=== PATIENT | female | born 1990 | race Hispanic/Latino ===

== ENCOUNTER 2019-07-15 11:58 | Emergency (ER) | payer BC, SELFPAY ==
[2019-07-15 12:59] LABS: Urine Blood 2+ (NEG); Urine Glucose NEGATIVE (NEG); Urine Protein NEGATIVE (NEG); Urine Specific Gravity >1.030 (1.005-1.030)
[2019-07-15] MEDS ORDERED: NA CHLORIDE 0.9% 1,000 ML ONE (13:06)
[2019-07-15 13:12] LABS: Basophils % 0.6 % (0-1.3); Hematocrit 39.6 % (36.0-45.0); Lymphocytes % 31.6 % (15.3-44.8); RBC Red Blood Cell Count 4.45 M/uL (3.86-4.86)
[2019-07-15 13:34] LABS: BUN Blood Urea Nitrogen 9 mg/dL (7-18); Bicarbonate 23 mmol/L (21-32); Glucose Level 85 mg/dL (74-106); HCG, Quantitative 19620 mIU/mL (1-3); Potassium 3.6 mmol/L (3.5-5.1); Sodium Level 138 mmol/L (136-145)
[2019-07-15 13:41] LABS: Urine Bacteria 20-50 /HPF (<20); Urine RBC <5 /HPF (NONE SEEN)
[2019-07-15 13:42] LABS: Urine Culture Reflex Order NOT NEEDED
--- NOTE | 2019-07-15 13:43 | ER ---
Nurse's Notes [facility] Name: Ghazal Fong Age: 29 yrs Sex: Female : 1990 Arrival Date: 07/15/2019 Time: 12:01 Bed 8 Private MD: Diagnosis: related conditions, unspecified, first trimester-vaginal bleeding Presentation: 07/15 12:19 Presenting complaint: Patient states: "I am 6 weeks and I started bleeding aa5 this morning". Pt c/o lower abd cramping and vaginal bleeding that is described as small amount. Transition of care: patient was not received from another setting of care. Onset of symptoms was July 15, 2019. Risk Assessment: Do you want to hurt yourself or someone else? Patient reports no desire to harm self or others. Initial Sepsis Screen: Does the patient meet any 2 criteria? No. Patient's initial sepsis screen is negative. Does the patient have a suspected source of infection? No. Patient's initial sepsis screen is negative. Care prior to arrival: None. 12:19 Acuity: JOEL 3 aa5 12:19 Method Of Arrival: Ambulatory aa5 ORDER MAKE UP CLERK: 12:20 4, Full Term 0, Premature 1, 2, Living 1, LMP 05/30/2019 aa5 13:40 4, Living 1, LMP 05/30/2019 snw Historical: - Allergies: 12:20 No Known Allergies; aa5 - Home Meds: 12:20 None [Active]; aa5 - PMHx: 12:20 None; aa5 - PSHx: 12:20 ; aa5 - Immunization history:: Adult Immunizations up to date. - Social history:: Smoking status: Patient/guardian denies using tobacco. - Ebola Screening: : No symptoms or risks identified at this time. Screenin:37 Abuse screen: Denies threats or abuse. Nutritional screening: No deficits noted. tw2 Tuberculosis screening: No symptoms or risk factors identified. Fall Risk None identified. Assessment: 12:47 General: Appears in no apparent distress. Behavior is calm, cooperative, appropriate tw2 for age. Pain: Denies pain. Neuro: Level of Consciousness is awake, alert, obeys commands, Oriented to person, place, time, situation. Cardiovascular: Heart tones S1 S2 Patient's skin is warm and dry. Respiratory: Airway is patent Respiratory effort is even, unlabored, Respiratory pattern is regular, symmetrical, Breath sounds are clear bilaterally. GI: No signs and/or symptoms were reported involving the gastrointestinal system. : Reports vaginal bleeding that is bright red, light flow. EENT: No signs and/or symptoms were reported regarding the EENT system. Derm: No signs and/or symptoms reported regarding the dermatologic system. Musculoskeletal: Range of motion: intact in all extremities. 13:37 Reassessment: Patient appears in no apparent distress at this time. No changes from tw2 previously documented assessment. Patient and/or family updated on plan of care and expected duration. Pain level reassessed. Patient is alert, oriented x 3, equal unlabored respirations, skin warm/dry/pink. Vital Signs: 12:20 BP 117 / 80; Pulse 87; Resp 18 S; Temp 97.6(TE); Pulse Ox 99% on R/A; Weight 87.54 kg aa5 (R); Height 5 ft. 4 in. (162.56 cm) (R); Pain 4/10; 13:37 BP 109 / 72; Pulse 77; Resp 17; Pulse Ox 98% on R/A; tw2 12:20 Body Mass Index 33.13 (87.54 kg, 162.56 cm) aa5 Vitals: 12:35 Heart Tones n/a. tw2 ED Course: 12:01 Patient arrived in ED. am2 12:19 Arm band placed on. aa5 12:20 Winnie Damian F[facility]-C [facility] snw 12:20 Jeison Salcido MD is Attending Physician. snw 12:20 Triage completed. aa5 12:34 Elizabeth Doyle, RONALD is Primary Nurse. tw2 12:37 Bed in low position. Call light in reach. tw2 12:46 Initial lab(s) drawn, by me, sent to lab. Urine collected: clean catch specimen, clear, jb1 jin colored. Inserted saline lock: 22 gauge in right antecubital area, using aseptic technique. Blood collected. 13:27 Patient taken to ultrasound. via wheelchair. lc3 13:27 Ultrasound completed. Patient tolerated well. Patient moved back from radiology. lc3 13:31 US Transvaginal Ob In Process Unspecified. EDMS 14:00 No provider procedures requiring assistance completed. IV discontinued, intact, tw2 bleeding controlled, No redness/swelling at site. Pressure dressing applied. Administered Medications: 13:26 Drug: NS 0.9% 1000 ml Route: IV; Rate: 1 bolus; Site: right antecubital; tw2 14:00 Follow up: IV Status: Order to discontinue infusion tw2 Outcome: 13:42 Discharge ordered by MD. blackburn 14:00 Discharged to home ambulatory. tw2 14:00 Condition: stable 14:00 Discharge instructions given to patient, Instructed on discharge instructions, follow up and referral plans. medication usage, Demonstrated understanding of instructions, follow-up care, medications, Prescriptions given X 1. 14:01 Patient left the ED. tw2 Signatures: Dispatcher [employer] EDMS Shaka Jones jb1 Winnie Damian, SALES SERVICE ROUTE MANAGER-C SALES SERVICE ROUTE MANAGER-[place] Nemo Tao, RN RN aa5 Bi Torres Tara, RN RN tw2 Katie Monteiro am2 Corrections: (The following items were deleted from the chart) 12:22 12:20 Pulse 87bpm; Resp 18bpm; Spontaneous; Pulse Ox 99% RA; Temp 97.6F Temporal; 87.54 aa5 kg Reported; Height 5 ft. 4 in. Reported; BMI: 33.1; Pain 4/10; aa5
--- NOTE | 2019-07-15 13:44 | EDPHYS ---
Physician Documentation [facility] Name: Ghazal Fong Age: 29 yrs Sex: Female : 1990 Arrival Date: 07/15/2019 Time: 12:01 Bed 8 Private MD: HÉCTOR Physician Jeison Salcido HPI: 07/15 13:40 This 29 yrs old Female presents to ER via Ambulatory with complaints of snw Vaginal Bleeding, + Preg <12wks. 13:40 The patient presents with vaginal bleeding that is light, with no clots. Onset: The snw symptoms/episode began/occurred suddenly. Modifying factors: The symptoms are alleviated by nothing, the symptoms are aggravated by nothing. Associated signs and symptoms: Pertinent positives: cramping. Severity of symptoms: At their worst the symptoms were very mild. The patient is sexually active. It is unknown whether or not the patient has had similar symptoms in the past. The patient has not recently seen a physician. MEDICAL ORDERLY: 12:20 4, Full Term 0, Premature 1, 2, Living 1, LMP 05/30/2019 aa5 13:40 4, Living 1, LMP 05/30/2019 snw Historical: - Allergies: 12:20 No Known Allergies; aa5 - Home Meds: 12:20 None [Active]; aa5 - PMHx: 12:20 None; aa5 - PSHx: 12:20 ; aa5 - Immunization history:: Adult Immunizations up to date. - Social history:: Smoking status: Patient/guardian denies using tobacco. - Ebola Screening: : No symptoms or risks identified at this time. ROS: 13:38 Constitutional: Negative for fever, chills, and weight loss, Eyes: Negative for injury, snw pain, redness, and discharge, ENT: Negative for injury, pain, and discharge, Neck: Negative for injury, pain, and swelling, Cardiovascular: Negative for chest pain, palpitations, and edema, Respiratory: Negative for shortness of breath, cough, wheezing, and pleuritic chest pain, Abdomen/GI: Negative for abdominal pain, + cramping, nausea, vomiting, diarrhea, and constipation, Back: Negative for injury and pain. 13:38 MS/Extremity: Negative for injury and deformity, Skin: Negative for injury, rash, and discoloration, Neuro: Negative for headache, weakness, numbness, tingling, and seizure, Psych: Negative for depression, anxiety, suicide ideation, homicidal ideation, and hallucinations. 13:38 : Positive for vaginal bleeding, small amounts. Exam: 13:36 Constitutional: This is a well developed, well nourished patient who is awake, alert, snw and in no acute distress. Head/Face: Normocephalic, atraumatic. Eyes: Pupils equal round and reactive to light, extra-ocular motions intact. Lids and lashes normal. Conjunctiva and sclera are non-icteric and not injected. Cornea within normal limits. Periorbital areas with no swelling, redness, or edema. ENT: Nares patent. No nasal discharge, no septal abnormalities noted. Tympanic membranes are normal and external auditory canals are clear. Oropharynx with no redness, swelling, or masses, exudates, or evidence of obstruction, uvula midline. Mucous membranes moist. Neck: Trachea midline, no thyromegaly or masses palpated, and no cervical lymphadenopathy. Supple, full range of motion without nuchal rigidity, or vertebral point tenderness. No Meningismus. Chest/axilla: Normal chest wall appearance and motion. Nontender with no deformity. No lesions are appreciated. Cardiovascular: Regular rate and rhythm with a normal S1 and S2. No gallops, murmurs, or rubs. Normal PMI, no JVD. No pulse deficits. Respiratory: Lungs have equal breath sounds bilaterally, clear to auscultation and percussion. No rales, rhonchi or wheezes noted. No increased work of breathing, no retractions or nasal flaring. Abdomen/GI: Soft, non-tender, with normal bowel sounds. No distension or tympany. No guarding or rebound. No evidence of tenderness throughout. Back: No spinal tenderness. No costovertebral tenderness. Full range of motion. MS/ Extremity: Pulses equal, no cyanosis. Neurovascular intact. Full, normal range of motion. Neuro: Awake and alert, GCS 15, oriented to person, place, time, and situation. Cranial nerves II-XII grossly intact. Motor strength 5/5 in all extremities. Sensory grossly intact. Cerebellar exam normal. Normal gait. Psych: Awake, alert, with orientation to person, place and time. Behavior, mood, and affect are within normal limits. 13:36 Skin: Appearance: normal except for affected area, ecchymosis, noted on the, right quadriceps, that are moderate, pt states her dog bit her a few days ago - no fever, no s/s of infection. Vital Signs: 12:20 BP 117 / 80; Pulse 87; Resp 18 S; Temp 97.6(TE); Pulse Ox 99% on R/A; Weight 87.54 kg aa5 (R); Height 5 ft. 4 in. (162.56 cm) (R); Pain 4/10; 13:37 BP 109 / 72; Pulse 77; Resp 17; Pulse Ox 98% on R/A; tw2 12:20 Body Mass Index 33.13 (87.54 kg, 162.56 cm) aa5 MDM: 12:35 Patient medically screened. luis a 13:44 Data reviewed: vital signs, nurses notes. Data interpreted: Pulse oximetry: on room air snw is 98 %. Interpretation: normal. Counseling: I had a detailed discussion with the patient and/or guardian regarding: the historical points, exam findings, and any diagnostic results supporting the discharge/admit diagnosis, lab results, radiology results, the need for outpatient follow up, to return to the emergency department if symptoms worsen or persist or if there are any questions or concerns that arise at home. Special discussion: Based on the history and exam findings, there is no indication for further emergent testing or inpatient evaluation. I discussed with the patient/guardian the need to see the OB Gyne specialist for further evaluation of the symptoms. I discussed with the patient/guardian the need to see the primary care provider for further evaluation of the symptoms. 07/15 12:35 Order name: Urine Dipstick--Ancillary (enter results); Complete Time: 13:04 bd 07/15 12:35 Order name: Urine --Ancillary (enter results); Complete Time: 13:04 bd 07/15 12:38 Order name: Quantitative Hcg; Complete Time: 13:36 snw 07/15 12:38 Order name: Abo/rh Typing; Complete Time: 13:19 snw 07/15 12:38 Order name: Basic Metabolic Panel; Complete Time: 13:36 snw 07/15 12:38 Order name: CBC with Diff; Complete Time: 13:17 snw 07/15 12:38 Order name: IV Saline Lock; Complete Time: 12:44 snw 07/15 12:38 Order name: Labs collected and sent; Complete Time: 12:44 snw 07/15 12:38 Order name: NPO; Complete Time: 12:44 snw 07/15 12:38 Order name: US Transvaginal Ob; Complete Time: 13:52 snw 07/15 12:38 Order name: Urine Microscopic Only; Complete Time: 13:44 snw Administered Medications: 13:26 Drug: NS 0.9% 1000 ml Route: IV; Rate: 1 bolus; Site: right antecubital; tw2 14:00 Follow up: IV Status: Order to discontinue infusion tw2 Disposition: 07/16 07:38 Co-signature as Attending Physician, Jeison Salcido MD I agree with the assessment and luis a plan of care. Disposition: 07/15/19 13:42 Discharged to Home. Impression: related conditions, unspecified, first trimester - vaginal bleeding. - Condition is Stable. - Discharge Instructions: Abdominal Pain During , First Trimester of , Eating Plan for Women, Vaginal Bleeding During , First Trimester, [id number], What Do I Need to Know About Injuries During ?. - Prescriptions for Vitamin 27- 0.8 mg Oral Tablet - take 1 tablet by ORAL route once daily; 60 tablet. - Medication Reconciliation Form, Thank You Letter, Antibiotic Education, Prescription Opioid Use, Work release form form. - Follow up: Emergency Department; When: As needed; Reason: Worsening of condition. Follow up: Private Physician; When: 2 - 3 days; Reason: Recheck today's complaints, Continuance of care, Re-evaluation by your physician. Signatures: Dispatcher [employer] Jeison Montgomery MD MD cha Therrien, Shelly, PRODUCTION BROACHER-C PRODUCTION BROACHER-[employer] Nemo Tao, RN RN aa5 Elizabeth Doyle, RN RN tw2 Corrections: (The following items were deleted from the chart) 07/15 14:01 13:42 07/15/2019 13:42 Discharged to Home. Impression: related conditions, tw2 unspecified, first trimester - vaginal bleeding. Condition is Stable. Forms are Work release form, Medication Reconciliation Form, Thank You Letter, Antibiotic Education, Prescription Opioid Use. Follow up: Emergency Department; When: As needed; Reason: Worsening of condition. Follow up: Private Physician; When: 2 - 3 days; Reason: Recheck today's complaints, Continuance of care, Re-evaluation by your physician. bere
--- NOTE | 2019-07-15 13:44 | RAD REPORT ---
EXAM DESCRIPTION: US - Transvaginal OB - 07/15/2019 1:31 pm CLINICAL HISTORY: VAGINAL BLEEDING COMPARISON: No comparisons FINDINGS: A single gestational sac is seen within the uterus. The shape of the sac is within normal limits for gestational age. Within the sac is a single pole estimated gestational age of 6 week s 2 days. Estimated date of delivery is 03/07/2020. Heart rate is 125 BPM, normal. The placenta is not yet developed due to early gestational age. The maternal adnexa and ovaries are within normal limits. Normal Doppler blood flow was demonstrated to both ovaries. IMPRESSION: Single live early intrauterine gestation with estimated gestational age of 6 weeks 2 day s, YOSELYN 03/07/2020.
[2019-07-15 14:39] VITALS: BP 109/72; O2SAT 98
[2019-07-15 14:41] VITALS: TEMP 97.6
== END 2019-07-15 14:01 | disposition home or self-care (01) ==
LOC: ER 11:58
DX: O20.9 Hemorrhage in early pregnancy, unspecified (principal); Z3A.01 Less than 8 weeks gestation of pregnancy
CPT/HCPCS: 36415; 76817; 80048; 81003; 81015; 81025; 84702; 85025; 86900; 86901; 96360; 99284; J7030

== ENCOUNTER 2019-12-18 15:09 | Emergency (ER) | payer OTHER ==
--- OUTSIDE RECORDS SUMMARY | 2019-12-18 15:18 | XMS REPORT | Summary of Care ---
:1990 Author Organization [facility] Address [address] [place] [address] Care Team Providers Name Role Phone Michelle Granda [facility] Primary Care Provider Reason for Visit Reason Comments Care Encounter Details Date Type Department Care Team Description [facility]09[facility] Supervision of high risk , antepartum (Primary Dx); Visit Paulette R, BLUEPRINT CLERK Previous delivery affecting , antepartum; [address] vaginal after trial; [place], [place] [address] [place] [address] [address] [place], [place] [phone] Allergies Active Allergy Reactions Severity Noted Date Comments No Known Drug Allergies Unknown - See comments 05/18/2009 documented as of this encounter (statuses as of 11/09/2019) Medications Medication Sig Dispensed Refills Start Date End Date Status PNV 67-iron ps-folate Take 1 Each by 30 capsule 9 07/10/2019 Active no.1-dha (VITAFOL mouth daily. ULTRA) 29 mg iron- 1 mg-200 mg CapIndications: Supervision of high risk in first trimester proMETHazine 25 mg Take 1 tablet by 30 tablet 0 07/31/2019 Active tabletIndications: mouth every 4 Nausea and vomiting (four) hours as during needed for Nausea and Vomiting (N/V). foLIC acid 1 mg Take 1 tablet by 30 tablet 5 08/13/2019 Active tabletIndications: mouth daily. Supervision of high risk , antepartum, History of seizures ASPIRIN 81 mg EC TAKE 1 TABLET BY 90 tablet 3 11/05/2019 Active tabletIndications: MOUTH EVERY DAY History of pre-eclampsia documented as of this encounter (statuses as of 11/09/2019) Active Problems Problem Noted Date Desires vaginal after trial 10/12/2019 Previous delivery affecting , antepartum 08/13/2019 Supervision of high risk , antepartum 07/09/2019 Multiparity 07/09/2019 History of pre-eclampsia 07/09/2019 Obesity in 07/09/2019 Epilepsy, generalized, convulsive 05/18/2009 Overview: Last seizure was 03/2010 Estimated Date of Delivery Comments Yes 03/06/2020 Based on last menstrual period of 05/31/2019 documented as of this encounter (statuses as of 11/09/2019) Resolved Problems Problem Noted Date Resolved Date History of pre-eclampsia in prior , currently 08/13/2019 08/21/2019 History of seizures 08/13/2019 08/21/2019 Nausea and vomiting during 07/31/2019 08/21/2019 UTI in 07/31/2019 08/21/2019 Overview: Reports dx at her last hospital encounter upt neg BV (bacterial vaginosis) 07/10/2019 08/21/2019 History of section 07/09/2019 08/21/2019 Flu vaccine need 07/09/2019 08/21/2019 Overview: Received today Well woman exam 01/20/2019 07/09/2019 Obesity (BMI 30-39.9) 03/14/2017 07/09/2019 Former tobacco use 03/14/2017 08/21/2019 Overview: Quit 07/03/19 with Nexplanon removal 02/28/2016 03/14/2017 Contraceptive management 02/15/2016 08/21/2019 Dysmenorrhea 02/15/2016 07/09/[address] 06/25/2013 03/14/2017 Rubella immune 06/17/2013 02/15/2016 Tobacco use disorder 06/17/2013 03/14/2017 delivery delivered 09/10/2009 06/17/2013 Overview: ICD10 Diagnosis Term Solar Electric Installer Utility Antepartum hypertension 09/05/2009 06/17/2013 Overview: ICD10 Diagnosis Term Solar Electric Installer Utility documented as of this encounter (statuses as of 11/09/2019) Immunizations Name Administration Dates Next Due HPV9 03/14/2017, 05/29/2016, 02/14/2016 Influenza Virus Vaccine Quad .5 mL IM 6+ 07/09/2019 MO Rubella 04/11/2009 Td 10/07/2005 Tdap 03/14/2017 documented as of this encounter Social History Tobacco Use Types Packs/Day Years Used Date Former Smoker Cigarettes 0.05 0.5 07/09/2012 - 07/03/2019 Smokeless Tobacco: Never Used Comments: Socially only Alcohol Use Drinks/Week oz/Week Comments Not Currently Stopped drinking on 07/03/2019 Estimated Date of Delivery Comments Yes 03/06/2020 Based on last menstrual period of 05/31/2019 Sex Assigned at Date Recorded Not on file Job Start Date Occupation Industry Not on file Not on file Not on file Travel History Travel Start Travel End No recent travel history available. documented as of this encounter Last Filed Vital Signs Vital Sign Reading Time Taken Comments Blood Pressure 122/84 11/09/2019 9:51 AM CLINICAL NUTRITION MANAGER Pulse 108 11/09/2019 9:51 AM CLINICAL NUTRITION MANAGER Temperature 36.5 C (97.7 F) 11/09/2019 9:51 AM CLINICAL NUTRITION MANAGER Respiratory Rate 16 11/09/2019 9:51 AM CLINICAL NUTRITION MANAGER Oxygen Saturation - - Inhaled Oxygen Concentration - - Weight 98.1 kg (216 lb 5 oz) 11/09/2019 9:51 AM CLINICAL NUTRITION MANAGER Height 162.6 cm (5' 4") 11/09/2019 9:51 AM CLINICAL NUTRITION MANAGER Body Mass Index 37.13 11/09/2019 9:51 AM CLINICAL NUTRITION MANAGER documented in this encounter Progress Notes Suraj Mcgee, SHELDON - 11/09/2019 9:30 AM CST Chief complaint: Chief Complaint Patient presents with Care HPI CC: Follow Up Visit Ghazal Fong is a 29 year old, , /White female. Patient's last menstrual period was 05/31/2019. She is 23w1d with an intrauterine . Her estimated date of delivery is 03/06/2020, by Last Menstrual Period. She has no complaints today. She reports +FM and denies contractions, LOF and bleeding today. Patient denies current or past physical, sexual or emotional abuse. Histories OB History Para Term AB Living 4 1 0 1 0 1 SAB TAB Ectopic Multiple Live Births 0 0 0 0 1 # Outcome Date GA Lbr Gray/2nd Weight Sex Delivery Anes PTL Lv 4 Current 3 12/2018 2 06/2018 1 09/09/09 36w0d 5 lb 3 oz (2.353 kg) SEC BANDAR Comments: Severe preclampsia, epilepsy during Past Medical History: Diagnosis Date Anemia Resolved 2009 Antepartum hypertension 09/05/2009 BV (bacterial vaginosis) 07/10/2019 Dysmenorrhea 02/15/2016 Seizures 2000 no seizure in last 10 years, last seizure in 2008 STD (sexually transmitted disease) CT - Treated 2009 Tobacco use disorder 06/17/2013 Family History Problem Relation Age of Onset Other - see comments Sister No Significant Medical Problems Maternal Grandmother No Significant Medical Problems Paternal Grandmother Arthritis NoFHx Asthma NoFHx Genetic NoFHx defects NoFHx Breast Cancer NoFHx Colon Cancer NoFHx Ovarian Cancer NoFHx Uterine Cancer NoFHx Cancer NoFHx Depression NoFHx Diabetes NoFHx Heart NoFHx High cholesterol NoFHx Hypertension NoFHx Mental retardation NoFHx Neurological NoFHx Osteoporosis NoFHx Psychiatry NoFHx Family Status Relation Name Status Sis (Not Specified) Mo Alive Fa Alive MGMo Alive MGFa PGMo Alive PGFa NoFHx (Not Specified) Past Surgical History: Procedure Laterality Date SECTION 2008 Social History Socioeconomic History Marital status: Single Spouse name: Not on file Number of children: 1 Years of education: 12 Highest education level: Not on file Occupational History 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: [employer] Social Needs Financial resource strain: Not on file Food insecurity: Worry: Not on file Inability: Not on file Transportation needs: Medical: Not on file Non-medical: Not on file Tobacco Use Smoking status: Former Smoker Packs/day: 0.05 Years: 0.50 Pack years: 0.02 Types: Cigarettes Start date: 07/09/2012 Last attempt to quit: 07/03/2019 Years since quittin.3 Smokeless tobacco: Never Used Tobacco comment: Socially only Substance and Sexual Activity Alcohol use: Not Currently Comment: Stopped drinking on 07/03/2019 Drug use: No Sexual activity: Yes Partners: Male control/protection: None Lifestyle Physical activity: Days per week: Not on file Minutes per session: Not on file Stress: Not on file Relationships Social connections: Talks on phone: Not on file Gets together: Not on file Attends sabianism service: Not on file Active member of club or organization: Not on file Attends meetings of clubs or organizations: Not on file Relationship status: Not on file Intimate partner violence: Fear of current or ex partner: Not on file Emotionally abused: Not on file Physically abused: Not on file Forced sexual activity: Not on file Other Topics Concern Service Not Asked Blood Transfusions No Caffeine Concern Not Asked Occupational Exposure Not Asked Hobby Hazards Not Asked Sleep Concern Not Asked Stress Concern Not Asked Weight Concern Not Asked Special Diet Not Asked Back Care Not Asked Exercise Not Asked Bike Helmet Not Asked Seat Belt Not Asked Self-Exams Not Asked Social History Narrative Denies domestic violence or abuse. Patient lives with sister. Patient has 2 dogs. Social History Substance and Sexual Activity Sexual Activity Yes Partners: Male control/protection: None Labs Labs are pending. Radiology No new radiology. Allergies Ghazal is allergic to no known drug allergies. Medications Ghazal has a current medication list which includes the following prescription(s) : aspirin, folic acid, promethazine, and pnv 67-iron ps-folate no.1-dha. Review of Systems Eyes: Negative for visual disturbance. Cardiovascular: Negative for leg swelling. Gastrointestinal: Negative for abdominal pain, nausea and vomiting. Genitourinary: Negative for vaginal bleeding, vaginal discharge and pelvic pain. Neurological: Negative for headaches. BP 122/84 (BP Location: Right arm, Patient Position: Sitting, BP CUFF SIZE: Adult Medium) | Pulse 108 | Temp 36.5 C (97.7 F) (Oral) | Resp 16 | Ht 5 ' 4" (1.626 m) | Wt 216 lb 5 oz (98.1 kg) |LMP 05/31/2019 | BMI 37.13 kg/m Pregravid BMI: 33.8 Physical Exam PHYSICAL: General Exam: Neurological: Normal Abdomen: Normal Extremities: Normal Pelvic Exam: Uterus: 22cm Weeks Assessment/Plan Supervision of high risk , antepartum (primary encounter diagnosis) Previous delivery affecting , antepartum Desires vaginal after trial Multiparity Comment: Routine Visit Plan: POCT URINALYSIS GLUCOSE & PROTEIN, Glucose 1 Hour Post Prandial, CBC with Differential Denies zika virus risk, signs and symptoms such as fever,rash,joint pain, conjunctivitis (red eyes), muscle pain, headaches; outside [place] travel to areas affected by zika, and FOB exposure to zika.Educated on use of mosquito repellent. Return to clinic in 3 weeks. Discussed treatment options. Medications as ordered. Reviewed patient instructions and provided printed copy. This visit did not involve counseling and coordination that comprised more than 50% of the visit time. SHELDON Rudd 11/09/2019 10:35 AM documented in this encounter Plan of Treatment Date Type Specialty Care Team Description 11/30/2019 Routine Visit OB Satellites Suraj Mcgee FNP [address] [place], [place] [id number] Name Type Priority Associated Diagnoses Order Schedule Glucose 1 Hour Post LAB Routine Supervision of high risk Expected: 2019, Prandial , antepartum Expires: 11/09/2020 CBC with Differential LAB Routine Supervision of high risk Expected: 2019, , antepartum Expires: 11/09/2020 Health Maintenance Due Date Last Done Comments PAP SMEAR 01/20/2022 01/20/2019, 02/14/2016, 06/17/2013, Additional history exists DTaP,Tdap,and Td Vaccines 03/14/2027 03/14/2017, 10/07/2005 (3 - Td) INFLUENZA VACCINE Completed 07/09/2019 PNEUMOCOCCAL 0-64 YEARS Aged Out No longer eligible COMBINED SERIES based on patient's age to complete this topic documented as of this encounter Procedures Procedure Name Priority Date/Time Associated Diagnosis Comments POCT URINALYSIS Routine 11/09/2019 9:55 Supervision of high Results for this GLUCOSE & PROTEIN AM CLINICAL NUTRITION MANAGER risk , procedure are in antepartum the results section. documented in this encounter Results POCT URINALYSIS GLUCOSE & PROTEIN (11/09/2019 9:55 AM CLINICAL NUTRITION MANAGER) POCT U PROT trace Negative - Negative POCT U GLU neg Negative - Negative Specimen Urine - URINE, CLEAN CATCH documented in this encounter Visit Diagnoses Diagnosis Supervision of high risk , antepartum - Primary Previous delivery affecting , antepartum Previous delivery, antepartum condition or complication Desires vaginal after trial Previous delivery, unspecified as to episode of care or not applicable Multiparity documented in this encounter Insurance Payer Benefit Plan / Subscriber ID Effective Phone Address Type Group Dates [facility] xxxxxxxxx 2019-Pres [address] Medicaid HEALTH CHOICE - [place] [facility] [id number] MANAGED MEDICAID [place], [place] [id number] documented as of this encounter Advance Directives Name Relationship Healthcare Agent Relationship Communication Heydi Fong Mother Primary healthcare agent
--- OUTSIDE RECORDS SUMMARY | 2019-12-18 15:18 | XMS REPORT | Summary of Care ---
:1990 Author Organization [facility] Address [address] [place] [address] Care Team Providers Name Role Phone DamionCesar coyilola Yumiko [facility] Primary Care Provider Reason for Visit Reason Comments Refill Request Encounter Details Date Type Department Care Team Description 11/02/2019 Refill [facility]- Damari Rowell MD Refill Request [address] [facility] [id number] [place] [address] [place], [place] [id number] Allergies Active Allergy Reactions Severity Noted Date Comments No Known Drug Allergies Unknown - See comments 05/18/2009 documented as of this encounter (statuses as of 11/05/2019) Medications Medication Sig Dispensed Refills Start Date End Date Status PNV 67-iron Take 1 Each by 30 capsule 9 07/10/2019 Active ps-folate no.1-dha mouth daily. (VITAFOL ULTRA) 29 mg iron- 1 mg-200 mg CapIndications: Supervision of high risk in first trimester proMETHazine 25 mg Take 1 tablet 30 tablet 0 07/31/2019 Active tabletIndications: by mouth every Nausea and 4 (four) hours vomiting during as needed for Nausea and Vomiting (N/V). foLIC acid 1 mg Take 1 tablet 30 tablet 5 08/13/2019 Active tabletIndications: by mouth Supervision of daily. high risk , antepartum, History of seizures ASPIRIN 81 mg EC TAKE 1 TABLET 90 tablet 3 11/05/2019 Active tabletIndications: BY MOUTH EVERY History of DAY pre-eclampsia aspirin 81 mg EC Take 1 tablet 30 tablet 6 08/24/2019 11/05/2019 Discontinued tabletIndications: by mouth History of daily. pre-eclampsia documented as of this encounter (statuses as of 11/05/2019) Active Problems Problem Noted Date Desires vaginal after trial 10/12/2019 Previous delivery affecting , antepartum 08/13/2019 Supervision of high risk , antepartum 07/09/2019 Multiparity 07/09/2019 History of pre-eclampsia 07/09/2019 Obesity in 07/09/2019 Epilepsy, generalized, convulsive 05/18/2009 Overview: Last seizure was 03/2010 Estimated Date of Delivery Comments Yes 03/06/2020 Based on last menstrual period of 05/31/2019 documented as of this encounter (statuses as of 11/05/2019) Resolved Problems Problem Noted Date Resolved Date [...] delivered 09/10/2009 06/17/2013 Overview: ICD10 Diagnosis Term Security Flex Officer Utility Antepartum hypertension 09/05/2009 06/17/2013 Overview: ICD10 Diagnosis Term Security Flex Officer Utility documented as of this encounter (statuses as of 11/05/2019) Immunizations Name Administration Dates Next Due HPV9 [...] of this encounter Last Filed Vital Signs Not on filedocumented in this encounter Plan of Treatment Date Type Specialty Care Team Description 11/09/2019 Routine Visit OB Satellites Suraj Mcgee, FUNERAL SERVICE PRACTITIONER/EMBALMER [address] [place] [address] [phone] Health Maintenance Due Date Last Done Comments PAP SMEAR 01/20/2022 01/20/2019, 02/14/2016, 06/17/2013, Additional history exists DTaP,Tdap,and Td Vaccines 03/14/2027 03/14/2017, 10/07/2005 (3 - Td) INFLUENZA VACCINE Completed 07/09/2019 PNEUMOCOCCAL 0-64 YEARS Aged Out No longer eligible COMBINED SERIES based on patient's age to complete this topic documented as of this encounter Results Not on filedocumented in this encounter Visit Diagnoses Diagnosis History of pre-eclampsia documented in this encounter Insurance Payer Benefit Plan / Subscriber ID Effective Phone Address Type Group Dates [facility] xxxxxxxxx 2019-Pres [address] Medicaid HEALTH CHOICE - HEALTH CHOICE ent [id number] [facility] MEDICAID [place], [place] [phone] documented as of this encounter Advance Directives Name Relationship Healthcare Agent Relationship Communication Heydi Fong Mother Primary healthcare agent [phone] ([place])
--- OUTSIDE RECORDS SUMMARY | 2019-12-18 15:18 | XMS REPORT | Summary of Care ---
:1990 Author Organization [facility] Address [address] [place] [address] Care Team Providers Name Role Phone Michelle Granda [facility] Primary Care Provider Reason for Visit Reason Comments Care Encounter Details Date Type Department Care Team Description 11/09[facility]2019 [facility] Supervision of high risk , antepartum (Primary Dx); Visit Paulette R, TEST OPERATOR Previous delivery affecting , antepartum; [address] vaginal after trial; [place], [place] [address] [place], [place] [phone] Allergies Active Allergy Reactions Severity Noted [...] delivered 09/10/2009 06/17/2013 Overview: ICD10 Diagnosis Term Registered Client Associate Utility Antepartum hypertension 09/05/2009 06/17/2013 Overview: ICD10 Diagnosis Term Registered Client Associate Utility documented as of this encounter (statuses [...] Comments Blood Pressure 122/84 11/09/2019 9:51 AM DENTAL LABORATORY SUPERVISOR Pulse 108 11/09/2019 9:51 AM DENTAL LABORATORY SUPERVISOR Temperature 36.5 C (97.7 F) 11/09/2019 9:51 AM DENTAL LABORATORY SUPERVISOR Respiratory Rate 16 11/09/2019 9:51 AM DENTAL LABORATORY SUPERVISOR Oxygen Saturation - - Inhaled Oxygen Concentration - - Weight 98.1 kg (216 lb 5 oz) 11/09/2019 9:51 AM DENTAL LABORATORY SUPERVISOR Height 162.6 cm (5' 4") 11/09/2019 9:51 AM DENTAL LABORATORY SUPERVISOR Body Mass Index 37.13 11/09/2019 9:51 AM DENTAL LABORATORY SUPERVISOR documented in this encounter Progress Notes Suraj [...] level: Not on file Occupational 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 documented in this encounter Results POCT URINALYSIS GLUCOSE & PROTEIN (11/09/2019 9:55 AM DENTAL LABORATORY SUPERVISOR) POCT U PROT trace Negative - Negative [...] ID Effective Phone Address Type Group Dates [facility] xxxxxxxxx 2019-Pres [address] Medicaid HEALTH CHOICE - [facility] [facility] [id number] MANAGED MEDICAID [place], [place] MEDICAID [phone] documented as of this encounter Advance Directives Name Relationship Healthcare Agent Relationship Communication Heydi Fong Mother Primary healthcare agent
--- OUTSIDE RECORDS SUMMARY | 2019-12-18 15:18 | XMS REPORT ---
:1990 [facility] Address [address] [place] [address] Dr. Espinoza [address] [place] [address] Care Team Providers Name Role Phone Unavailable Unavailable Unavailable Problems This patient has no known problems. Allergies, Adverse Reactions, Alerts This patient has no known allergies or adverse reactions. Medications This patient has no known medications.
--- OUTSIDE RECORDS SUMMARY | 2019-12-18 15:19 | XMS REPORT | Summary of Care ---
:1990 Author Organization [facility] Address [address] [place] [address] Care Team Providers Name Role Phone Michelle Granda [facility] Primary Care Provider Reason for Visit Reason Comments Care Encounter Details Date Type Department Care Team Description [facility] Supervision of high risk , antepartum (Primary Dx); Visit Paulette RSHELDON History of pre-eclampsia; [address] Previous delivery affecting , antepartum; [place], [place] Desires vaginal after trial; [address] [place], [place] Multiparity; [phone] Epilepsy, generalized, convulsive; [phone] Obesity in Allergies Active Allergy Reactions Severity Noted Date Comments No Known Drug Allergies Unknown - See comments 05/18/2009 documented as of this encounter (statuses as of 11/30/2019) Medications Medication Sig Dispensed Refills Start Date [...] as of this encounter (statuses as of 11/30/2019) Active Problems Problem Noted Date Desires vaginal after trial 10/12/2019 Previous delivery affecting , antepartum 08/13/2019 Supervision of high risk , antepartum 07/09/2019 Multiparity 07/09/2019 History of pre-eclampsia 07/09/2019 Obesity in 07/09/2019 Epilepsy, generalized, convulsive 05/18/2009 Overview: Last seizure was 03/2010 Estimated Date of Delivery Comments Yes 03/06/2020 Based on last menstrual period of 05/31/2019 documented as of this encounter (statuses as of 11/30/2019) Resolved Problems Problem Noted Date Resolved Date [...] delivered 09/10/2009 06/17/2013 Overview: ICD10 Diagnosis Term Windows Server Architect Utility Antepartum hypertension 09/05/2009 06/17/2013 Overview: ICD10 Diagnosis Term Windows Server Architect Utility documented as of this encounter (statuses as of 11/30/2019) Immunizations Name Administration Dates Next Due HPV9 [...] Sign Reading Time Taken Comments Blood Pressure 123/76 11/30/2019 8:29 AM CARPENTER HELPER Pulse 95 11/30/2019 8:29 AM CARPENTER HELPER Temperature 36.2 C (97.1 F) 11/30/2019 8:29 AM CARPENTER HELPER Respiratory Rate 16 11/30/2019 8:29 AM CARPENTER HELPER Oxygen Saturation - - Inhaled Oxygen Concentration - - Weight 99.1 kg (218 lb 9 oz) 11/30/2019 8:29 AM CARPENTER HELPER Height 165.1 cm (5' 5") 11/30/2019 8:29 AM CARPENTER HELPER Body Mass Index 36.37 11/30/2019 8:29 AM CARPENTER HELPER documented in this encounter Progress Notes Suraj Mcgee, ROUGE MILLER - 11/30/2019 8:15 AM CST Chief complaint: Chief Complaint Patient presents with Care HPI CC: Follow Up Visit Ghazal Fong is a 29 year old, , /White female. Patient's last menstrual period was 05/31/2019. She is 26w1d with an intrauterine . Her estimated date of delivery is 03/06/2020, by Last Menstrual Period. She has no complaints today. She reports +FM and denies contractions, LOF and bleeding today. Will review labs and f/u as needed. OB/ER, PIH, PTL and movement precautions given. 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 Neurological: Negative for headaches. BP 123/76 (BP Location: Right arm, Patient Position: Sitting, BP CUFF SIZE: Adult Medium) | Pulse 95 | Temp 36.2 C (97.1 F) (Oral) | Resp 16 | Ht 5 ' 5" (1.651 m) | Wt 218 lb 9 oz (99.1 kg) | LMP 05/31/2019 | BMI 36.37 kg/m Pregravid BMI: 32.8 Physical Exam PHYSICAL: General Exam: Neurological: Normal Abdomen: Normal Extremities: Normal Pelvic Exam: Uterus: 27cm Weeks Assessment/Plan Supervision of high risk , antepartum (primary encounter diagnosis) History of pre-eclampsia Previous delivery affecting , antepartum Desires vaginal after trial Multiparity Comment:ROutine Visit Plan: Glucose 1 Hour Post Prandial, CBC with Differential, CBC WITH DIFFERENTIAL, POCT URINALYSIS W SPECIFIC GRAVITY Denies zika virus risk, signs and symptoms such as fever,rash,joint pain, conjunctivitis (red eyes), muscle pain, headaches; outside [place] travel to areas affected by zika, and FOB exposure to zika.Educated on use of mosquito repellent. Epilepsy, generalized, convulsive Comment: history, no seizure noted Plan: will continue to monitor Obesity in Comment: BMI: 36.37 Plan: Patient encouraged to limit weight gain and advised to eat healthy diet, fruits, vegetables, increased fiber and water intake and protein low in fat. Encouraged exercise for 30 min everyday; begin regimen with caution to prevent injury. Encouraged to decrease BMI to <25. Return to clinic in 2 weeks. Discussed treatment options. Medications as ordered. Reviewed patient instructions and provided printed copy. This visit did not involve counseling and coordination that comprised more than 50% of the visit time. SHELDON Rudd 11/30/2019 8:58 AM documented in this encounter Plan of Treatment Date Type Specialty Care Team Description 12/14/2019 Routine Visit OB Satellites Suraj Mcgee FNP [address] [place] [address] [phone] Name Type Priority Associated Diagnoses Order Schedule CBC WITH DIFFERENTIAL LAB Routine Supervision of high Ordered: risk , 11/30/2019 antepartum HIV 1/2 AG-AB WITH LAB Routine Supervision of high Expected: REFLEX risk , 11/30/2019, antepartum Expires: 11/30/2020 GALV ONLY - SYPHILIS LAB Routine Supervision of high Expected: IGG/IGM risk , 11/30/2019, antepartum Expires: 11/30/2020 TDAP VACCINE, >11 YRS, IMMUNIZATION/I Routine Supervision of high Expected: IM (Do not give before NJECTION risk , 12/01/2019, 20 weeks) antepartum Expires: 12/29/2019 Health Maintenance Due Date Last Done Comments PAP SMEAR 01/20/2022 01/20/2019, 02/14/2016, 06/17/2013, Additional history exists DTaP,Tdap,and Td Vaccines 03/14/2027 03/14/2017, 10/07/2005 (3 - Td) INFLUENZA VACCINE Completed 07/09/2019 PNEUMOCOCCAL 0-64 YEARS Aged Out No longer eligible COMBINED SERIES based on patient's age to complete this topic documented as of this encounter Procedures Procedure Name Priority Date/Time Associated Diagnosis Comments POCT URINALYSIS Routine 11/30/2019 8:35 AM Supervision of high Results for this CARPENTER HELPER risk , procedure are in antepartum the results section. documented in this encounter Results POCT URINALYSIS W SPECIFIC GRAVITY (11/30/2019 8:35 AM CARPENTER HELPER) POCT U SP GRAV . 1.005 - 1.025 mg/dl POCT PH U . 5 - 8 mg/dl POCT U LEUK EST . Negative - Negative POCT U NIT . Negative - Negative POCT U PROT trace Negative - Negative POCT U GLU negative Negative - Negative POCT U KETONE . Negative - Negative POCT U UROBILI . 0.2 - 1 mg/dl POCT U BILI . Negative - Negative POCT U BLD . Negative - Negative POCT U COLOR POCT U APPEAR Specimen Urine - URINE, CLEAN CATCH documented in this encounter Visit Diagnoses Diagnosis Supervision of high risk , antepartum - Primary History of pre-eclampsia Previous delivery affecting , antepartum Previous delivery, antepartum condition or complication Desires vaginal after trial Previous delivery, unspecified as to episode of care or not applicable Multiparity Epilepsy, generalized, convulsive Generalized convulsive epilepsy without mention of intractable epilepsy Obesity in Obesity complicating , childbirth, or the puerperium, unspecified as to episode of care or not applicable documented in this encounter Insurance Payer Benefit Plan / Subscriber ID Effective Phone Address Type Group Dates [facility] xxxxxxxxx 2019-Pres [address] Medicaid HEALTH CHOICE - HEALTH CHOICE ent [id number] MANAGED MEDICAID [place], [place] [phone] documented as of this encounter Advance Directives Name Relationship Healthcare Agent Relationship Communication Heydi Fong Mother Primary healthcare agent
--- OUTSIDE RECORDS SUMMARY | 2019-12-18 15:19 | XMS REPORT | Summary of Care ---
:1990 Author Organization [facility] Address [address] [place] [address] Care Team Providers Name Role Phone Michelle Granda [facility] Primary Care Provider Reason for Visit Reason Comments Care Encounter Details Date Type Department Care Team Description 11/30/2019 [facility] Supervision of high risk , antepartum (Primary Dx); Visit Paulette RSHELDON History of pre-eclampsia; [address] Previous delivery affecting , antepartum; [place] Desires vaginal after trial; [address] [place] Multiparity; [phone] Epilepsy, generalized, convulsive; [phone] Obesity in Allergies Active Allergy Reactions Severity [...] delivered 09/10/2009 06/17/2013 Overview: ICD10 Diagnosis Term Pearl Peller Utility Antepartum hypertension 09/05/2009 06/17/2013 Overview: ICD10 Diagnosis Term Pearl Peller Utility documented as of this encounter (statuses [...] Comments Blood Pressure 123/76 11/30/2019 8:29 AM MINT MACHINE OPERATOR Pulse 95 11/30/2019 8:29 AM MINT MACHINE OPERATOR Temperature 36.2 C (97.1 F) 11/30/2019 8:29 AM MINT MACHINE OPERATOR Respiratory Rate 16 11/30/2019 8:29 AM MINT MACHINE OPERATOR Oxygen Saturation - - Inhaled Oxygen Concentration - - Weight 99.1 kg (218 lb 9 oz) 11/30/2019 8:29 AM MINT MACHINE OPERATOR Height 165.1 cm (5' 5") 11/30/2019 8:29 AM MINT MACHINE OPERATOR Body Mass Index 36.37 11/30/2019 8:29 AM MINT MACHINE OPERATOR documented in this encounter Progress Notes Suraj Mcgee, CLAY THROWER - 11/30/2019 8:15 AM CST Chief complaint: [...] level: Not on file 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 Employer: [employer] Social Needs Financial resource [...] file Gets together: Not on file Attends restoration service: Not on file Active member of [...] OB Satellites Suraj Mcgee FNP [address] [place] [address] [phone] Name Type Priority Associated Diagnoses Date/Time Glucose 1 Hour Post LAB Routine Supervision of high risk 11/30/2019 9:31 AM Prandial , antepartum MINT MACHINE OPERATOR CBC with Differential LAB Routine Supervision of high risk 11/30/2019 9: 31 AM , antepartum MINT MACHINE OPERATOR CBC WITH DIFFERENTIAL LAB Routine Supervision of high risk 11/30/2019 9: 31 AM , antepartum MINT MACHINE OPERATOR Name Type Priority Associated Diagnoses Order Schedule HIV 1/2 AG-AB WITH LAB Routine Supervision of high Expected: REFLEX risk , 11/30/2019, antepartum Expires: 11/30/2020 GALV ONLY - SYPHILIS LAB Routine Supervision of high Expected: IGG/IGM risk , 11/30/2019, antepartum Expires: 11/30/2020 TDAP VACCINE, >11 IMMUNIZATION/IN Routine Supervision of high Expected: YRS, IM (Do not give JECTION risk , 12/01/2019, before 20 weeks) antepartum Expires: 12/29/2019 Health Maintenance [...] AM Supervision of high Results for this MINT MACHINE OPERATOR risk , procedure are in antepartum the results section. documented in this encounter Results POCT URINALYSIS W SPECIFIC GRAVITY (11/30/2019 8:35 AM MINT MACHINE OPERATOR) POCT U SP GRAV . 1.005 - [...] ID Effective Phone Address Type Group Dates [facility] xxxxxxxxx 2019- [address] Medicaid HEALTH CHOICE - HEALTH CHOICE ent [id number] MANAGED MEDICAID [place], [place] [phone] documented as of this encounter Advance Directives Name Relationship Healthcare Agent Relationship Communication Heydi Fong Mother Primary healthcare agent
--- OUTSIDE RECORDS SUMMARY | 2019-12-18 15:19 | XMS REPORT | Summary of Care ---
:1990 Author Organization [facility] Address [address] [place] [address] Care Team Providers Name Role Phone Michelle Granda [facility] Primary Care Provider Reason for Visit Reason Comments Care Sore Throat/Body Aches Encounter Details Date Type Department Care Team Description [facility]/26[facility]2019 [facility], Supervision of high risk , antepartum (Primary Dx); Visit Carls[place]raghu Calderon, Multiparity; [address] [facility] History of pre-eclampsia; [place], [place] [address] Previous delivery affecting , antepartum; [id number] Acute nasopharyngitis (common cold); [phone] [place] [address] Allergies Active Allergy Reactions Severity Noted Date Comments No Known Drug Allergies Unknown - See comments 05/18/2009 documented as of this encounter (statuses as of 11/26/2019) Medications Medication Sig Dispensed Refills Start Date [...] as of this encounter (statuses as of 11/26/2019) Active Problems Problem Noted Date Desires vaginal after trial 10/12/2019 Previous delivery affecting , antepartum 08/13/2019 Supervision of high risk , antepartum 07/09/2019 Multiparity 07/09/2019 History of pre-eclampsia 07/09/2019 Obesity in 07/09/2019 Epilepsy, generalized, convulsive 05/18/2009 Overview: Last seizure was 03/2010 Estimated Date of Delivery Comments Yes 03/06/2020 Based on last menstrual period of 05/31/2019 documented as of this encounter (statuses as of 11/26/2019) Resolved Problems Problem Noted Date Resolved Date [...] delivered 09/10/2009 06/17/2013 Overview: ICD10 Diagnosis Term Pump Oiler Utility Antepartum hypertension 09/05/2009 06/17/2013 Overview: ICD10 Diagnosis Term Pump Oiler Utility documented as of this encounter (statuses as of 11/26/2019) Immunizations Name Administration Dates Next Due HPV9 [...] Sign Reading Time Taken Comments Blood Pressure 120/71 11/26/2019 3:20 PM MARINE DRILLER Pulse 109 11/26/2019 3:20 PM MARINE DRILLER Temperature 37.1 C (98.7 F) 11/26/2019 3:20 PM MARINE DRILLER Respiratory Rate 16 11/26/2019 3:20 PM MARINE DRILLER Oxygen Saturation - - Inhaled Oxygen Concentration - - Weight 98.6 kg (217 lb 6 oz) 11/26/2019 3:20 PM MARINE DRILLER Height 162.6 cm (5' 4") 11/26/2019 3:20 PM MARINE DRILLER Body Mass Index 37.31 11/26/2019 3:20 PM MARINE DRILLER documented in this encounter Progress Notes Michelle Granda, WHCNP - 11/26/2019 3:30 PM CST Chief complaint: Chief Complaint Patient presents with Care Sore Throat/Body Aches HPI CC: Follow Up Visit Ghazal Fong is a 29 year old, , /White female. Patient's last menstrual period was 05/31/2019. She is 25w4d with an intrauterine . Her estimated date of delivery is 03/06/2020, by Last Menstrual Period. She complains today of: of feeling under the weather, she reports coughing, sorethroat, body aches for the past couple of days. she reports her child was dx with strep throat about a week ago. she denies taking anything otc for relief. . She reports +FM and denies contractions, LOF and bleeding today. 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 POCT PH U 10/12/2019 . POCT U LEUK EST 10/12/2019 . POCT U NIT 10/12/2019 . POCT U PROT 10/12/2019 trace POCT U GLU 10/12/2019 negative POCT U KETONE 10/12/2019 . POCT U UROBILI 10/12/2019 . POCT U BILI 10/12/2019 . POCT U BLD 10/12/2019 . Routine Visit on 09/14/2019 Component Date Value POCT U SP GRAV 09/14/2019 . POCT PH U 09/14/2019 5 POCT U LEUK EST 09/14/2019 Neg POCT U NIT 09/14/2019 Neg POCT U PROT 09/14/2019 Trace POCT U GLU 09/14/2019 Neg POCT U KETONE 09/14/2019 None POCT U UROBILI 09/14/2019 . POCT U BILI 09/14/2019 . POCT U BLD 09/14/2019 Neg AFP-MS 09/14/2019 16.1 AFP-MS Interpretation 09/14/2019 Value:NTD SCREENING RESULTS: Gestation Age: Weeks 15 days 3 based on __ LMP __ PE _x_ US. Maternal Serum AFP value in ng/mL is 16.1. The corrected AFP MOM is 0.77. NORMAL RANGE is less than 2.5 MOM in NTD screening. The NTD screen result is: _x_ Negative __ Positive with a risk of 1 in Radiology No new radiology. Allergies Ghazal is allergic to no known drug allergies. Medications Ghazal has a current medication list which includes the following prescription(s) : aspirin, folic acid, promethazine, and pnv 67-iron ps-folate no.1-dha. Review of Systems Constitutional: Negative. HENT: Negative. Eyes: Negative. Respiratory: Negative. Breasts: Negative. Cardiovascular: Negative. Gastrointestinal: Negative. Genitourinary: Negative. Musculoskeletal: Negative. Skin: Negative. Neurological: Negative. Psychiatric/Behavioral: Negative. Endocrine: Endocrine negative BP 120/71 (BP Location: Right arm, Patient Position: Sitting, BP CUFF SIZE: Adult Large) | Pulse 109 | Temp 37.1 C (98.7 F) (Oral) | Resp 16 | Ht 5 ' 4" (1.626 m) | Wt 217 lb 6 oz (98.6 kg) | LMP 05/31/2019 | BMI 37.31 kg/m Pregravid BMI: 33.8 Physical Exam PHYSICAL: General Exam: Neurological: Normal Abdomen: Normal gravid Extremities: Normal Pelvic Exam: Uterus: 25 Weeks Assessment/Plan Return to clinic in 1 weeks. Denies zika virus risk, signs and symptoms such as fever,rash,joint pain, conjunctivitis (red eyes),muscle pain, headaches; outside [place] travel to areas affected by zika, and FOB exposure to zika. Educated on use of mosquito repellent. Supervision of high risk , antepartum (primary encounter diagnosis) Multiparity History of pre-eclampsi Previous delivery affecting , antepartum Comment: routine Plan: POCT URINALYSIS W SPECIFIC GRAVITY Acute nasopharyngitis (common cold) Comment: reports Plan: POCT RAPID STREP SCREEN FOR GROUP A, POCT RAPID FLU A AND B TEST, otc remedies suggested, she verbalized understanding Obesity in Comment: see bmi Plan: BMI discussed, appropriate weight gain, sensible diet, and exercise This visit did not involve counseling and coordination that comprised more than 50% of the visit time. SHEREE Chávez 11/26/2019 4:05 PM documented in this encounter Plan of Treatment Date Type Specialty Care Team Description 11/30/2019 Routine Visit OB Satellites Suraj Mcgee, TOLL LINE REPAIRER [address] [place] [address] [phone] Health Maintenance Due Date Last Done Comments PAP SMEAR 01/20/2022 01/20/2019, 02/14/2016, 06/17/2013, Additional history exists DTaP,Tdap,and Td Vaccines 03/14/2027 03/14/2017, 10/07/2005 (3 - Td) INFLUENZA VACCINE Completed 07/09/2019 PNEUMOCOCCAL 0-64 YEARS Aged Out No longer eligible COMBINED SERIES based on patient's age to complete this topic documented as of this encounter Procedures Procedure Name Priority Date/Time Associated Diagnosis Comments POCT RAPID STREP Routine 11/26/2019 3:51 Acute nasopharyngitis Results for this SCREEN FOR GROUP A PM MARINE DRILLER (common cold) procedure are in the results section. POCT RAPID FLU A Routine 11/26/2019 3:45 Acute nasopharyngitis Results for this AND B TEST PM MARINE DRILLER (common cold) procedure are in the results section. POCT URINALYSIS Routine 11/26/2019 3:21 Supervision of high Results for this PM MARINE DRILLER risk , procedure are in antepartum the results section. documented in this encounter Results POCT RAPID STREP SCREEN FOR GROUP A (11/26/2019 3:51 PM MARINE DRILLER) POCT GP A STREP Negative Negative - Negative Specimen Swab - THROAT POCT RAPID FLU A AND B TEST (11/26/2019 3:45 PM MARINE DRILLER) POCT INFLUENZA A Negative Negative - [facility] POCT INFLUENZA B Negative Negative - [facility] Specimen Swab Performing Organization Address City/State/Zipcode Phone Number [facility] CLIA: [id number], [address] [place] [address] POCT URINALYSIS W SPECIFIC GRAVITY (11/26/2019 3:21 PM MARINE DRILLER) POCT U SP GRAV . 1.005 - 1.025 mg/dl POCT PH U . 5 - 8 mg/dl POCT U LEUK EST . Negative - Negative POCT U NIT . Negative - Negative POCT U PROT Trace Negative - Negative POCT U GLU Neg Negative - Negative POCT U KETONE . Negative - Negative POCT U UROBILI . 0.2 - 1 mg/dl POCT U BILI . Negative - Negative POCT U BLD . Negative - Negative POCT U COLOR POCT U APPEAR Specimen Urine - URINE, CLEAN CATCH documented in this encounter Visit Diagnoses Diagnosis Supervision of high risk , antepartum - Primary Multiparity History of pre-eclampsia Previous delivery affecting , antepartum Previous delivery, antepartum condition or complication Acute nasopharyngitis (common cold) Obesity in Obesity complicating , childbirth, or the puerperium, unspecified as to episode of care or not applicable documented in this encounter Insurance Payer Benefit Plan / Subscriber ID Effective Phone Address Type Group [facility] xxxxxxxxx 2019-Pres [address] Medicaid HEALTH CHOICE - HEALTH CHOICE ent [id number] MANAGED MEDICAID [place], [place] MED[place] [phone] documented as of this encounter Advance Directives Name Relationship Healthcare Agent Relationship Communication Heydi Fong Mother Primary healthcare agent
--- OUTSIDE RECORDS SUMMARY | 2019-12-18 15:19 | XMS REPORT | Summary of Care ---
:1990 Author Organization [facility] Address [address] [place] [address] Care Team Providers Name Role Phone Michelle Granda [facility] Primary Care Provider Reason for Visit Reason Comments Assessment Appointment Encounter Details Date Type Department Care Team Description 11/26/2019 Telephone [facility]- Suraj Mcgee, Assessment; [facility] Appointment [address] [facility] [address] [place], [place] [phone] Allergies Active Allergy Reactions Severity Noted Date [...] delivered 09/10/2009 06/17/2013 Overview: ICD10 Diagnosis Term Tank Pumper Panelboard Utility Antepartum hypertension 09/05/2009 06/17/2013 Overview: ICD10 Diagnosis Term Tank Pumper Panelboard Utility documented as of this encounter (statuses [...] Treatment Date Type Specialty Care Team Description 11/26/2019 Routine Visit OB Satellites Michelle Granda, WHCNP [address] [place] [address] 11/30/2019 Routine Visit OB Satellites Suraj Mcgee, NYLON OPERATOR [address] [place] [address] Health Maintenance Due Date Last Done Comments PAP SMEAR 01/20/2022 01/20/2019, 02/14/2016, 06/17/2013, Additional history exists DTaP,Tdap,and Td Vaccines 03/14/2027 03/14/2017, 10/07/2005 (3 - Td) INFLUENZA VACCINE Completed 07/09/2019 PNEUMOCOCCAL 0-64 YEARS Aged Out No longer eligible COMBINED SERIES based on patient's age to complete this topic documented as of this encounter Results Not on filedocumented in this encounter Insurance Payer Benefit Plan / Subscriber ID Effective Phone Address Type Group [facility] xxxxxxxxx 2019-Pres [address] Medicaid HEALTH CHOICE - HEALTH CHOICE [facility] [id number] MANAGED MEDICAID [place], [place] [phone] documented as of this encounter Advance Directives Name Relationship Healthcare Agent Relationship Communication Heydi Fong Mother Primary healthcare agent
--- OUTSIDE RECORDS SUMMARY | 2019-12-18 15:20 | XMS REPORT | Summary of Care ---
:1990 Author Organization [facility] Address [address] [place] [id number] Care Team Providers Name Role Phone [facility] Provider Reason for Visit Reason Comments Assessment fell and and has a ball on foot Encounter Details Date Type Department Care Team Description 12/18/2019 Telephone [facility]- Michelle Granda Assessment ( Surjit C, [facility] and has a ball on [address] foot) [place], [place] [address] [place], [place] [id number] Allergies Active Allergy Reactions Severity Noted Date Comments No Known Drug Allergies Unknown - See comments 05/18/2009 documented as of this encounter (statuses as of 12/18/2019) Medications Medication Sig Dispensed Refills Start Date [...] as of this encounter (statuses as of 12/18/2019) Active Problems Problem Noted Date Desires vaginal after trial 10/12/2019 Previous delivery affecting , antepartum 08/13/2019 Supervision of high risk , antepartum 07/09/2019 Multiparity 07/09/2019 History of pre-eclampsia 07/09/2019 Obesity in 07/09/2019 Epilepsy, generalized, convulsive 05/18/2009 Overview: Last seizure was 03/2010 Estimated Date of Delivery Comments Yes 03/06/2020 Based on last menstrual period of 05/31/2019 documented as of this encounter (statuses as of 12/18/2019) Resolved Problems Problem Noted Date Resolved Date [...] delivered 09/10/2009 06/17/2013 Overview: ICD10 Diagnosis Term 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 Medicaid HEALTH CHOICE - HEALTH CHOICE ent [id number] MANAGED MEDICAID [place] [id number] documented as of this encounter Advance Directives Name Relationship Healthcare Agent Relationship Communication Heydi Fong Mother Primary healthcare agent
[2019-12-18] MEDS ORDERED: ACETAMINOPHEN 325 MG TABLET ONE (16:02)
--- NOTE | 2019-12-18 16:28 | RAD REPORT ---
EXAM DESCRIPTION: RAD - Foot Right 3 View - 12/18/2019 4:02 pm CLINICAL HISTORY: Right foot pain status post injury FINDINGS: Minimally displaced transverse fracture base of the fifth metatarsal. No dislocation
--- NOTE | 2019-12-18 16:50 | EDPHYS ---
Physician Documentation [facility] Name: Ghazal Fong Age: 29 yrs Sex: Female : 1990 Arrival Date: 12/18/2019 Time: 15:11 Bed 27 Private MD: ED Physician Eric Shaw HPI: 12/17 15:45 This 29 yrs old Female presents to ER via Wheelchair with complaints of Foot cp Injury. 15:45 The patient presents with an injury, pain, that is acute. The complaints affect the cp dorsum of right foot. 15:45 Context: resulted from a mis-step, the patient can partially bear weight, the patient cp is able to ambulate, with moderate difficulty. Onset: The symptoms/episode began/occurred today. 15:45 Associated signs and symptoms: Pertinent negatives numbness. Treatment prior to arrival cp includes: no previous treatment. 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 - Social history:: Smoking status: Patient/guardian denies using tobacco. ROS: 16:00 Constitutional: Negative for body aches, chills, fever. cp 16:00 Eyes: Negative for injury, pain, redness, and discharge. cp 16:00 Cardiovascular: Negative for chest pain. 16:00 Respiratory: Negative for cough, shortness of breath, wheezing. 16:00 Abdomen/GI: Negative for abdominal pain, nausea, vomiting, and diarrhea. 16:00 MS/extremity: Positive for injury or acute deformity, ecchymosis, pain, swelling, tenderness, of the dorsum of right foot, Negative for paresthesias. 16:00 Neuro: Negative for altered mental status, headache, weakness. 16:00 All other systems are negative. Exam: 16:10 Constitutional: The patient appears in no acute distress, alert, awake, non-toxic, well cp developed, well nourished. 16:10 Head/Face: Normocephalic, atraumatic. cp 16:10 Cardiovascular: Rate: tachycardic. 16:10 Respiratory: the patient does not display signs of respiratory distress, Respirations: normal. 16:10 Abdomen/GI: Inspection: gravid appearance, is noted. 16:10 Musculoskeletal/extremity: Extremities: grossly normal except: noted in the dorsum of right foot: ecchymosis, pain, swelling, tenderness, Perfusion: the extremity is normally perfused throughout, Sensation intact. Vital Signs: 15:35 BP 138 / 90; Pulse 111; Resp 20; Temp 97.5; Pulse Ox 98% on R/A; Weight 99.34 kg (R); aj1 Height 5 ft. 5 in. (165.10 cm) (R); Pain 8/10; 16:30 BP 119 / 71; Pulse 102; Resp 20; Pulse Ox 98% on R/A; aj1 17:30 BP 130 / 65; Pulse 103; Resp 18; Pulse Ox 100% on R/A; aj1 15:35 Body Mass Index 36.44 (99.34 kg, 165.10 cm) aj1 Procedures: 17:57 Splinting: Splint applied to right foot using posterior short leg. applied by tech. cp Examined by me, post splint application: neurovascular intact, Patient tolerated well. MDM: 15:35 Patient medically screened. cp 16:05 Differential diagnosis: dislocation, closed fracture, sprain. cp 16:49 Data reviewed: vital signs, nurses notes, radiologic studies, plain films, and as a cp result, I will discharge patient. 16:49 Counseling: I had a detailed discussion with the patient and/or guardian regarding: the cp historical points, exam findings, and any diagnostic results supporting the discharge/admit diagnosis, radiology results, the need for outpatient follow up, for definitive care, a orthopedic surgeon. 12/17 15:43 Order name: XRAY Foot RIGHT 3 View; Complete Time: 16:47 cp 12/17 16:47 Interpretation: Report reviewed. cp 12/17 16:48 Order name: Splint Leg: Short Leg cp 12/17 16:48 Order name: Crutches cp Administered Medications: 15:55 CANCELLED (Physician Discretion): Ibuprofen 800 mg PO once; may give if negative cp 16:02 Drug: Tylenol 650 mg Route: PO; aj1 Disposition: 19:42 Co-signature as Attending Physician, Eric Shaw MD I agree with the assessment and kdr plan of care. Disposition: 12/18/19 16:49 Discharged to Home. Impression: Fracture of fifth metatarsal bone - right foot. - Condition is Stable. - Medication Reconciliation Form, Thank You Letter, Antibiotic Education, Prescription Opioid Use form. - Follow up: Jaciel Nettles MD; When: 2 - 3 days; Reason: right foot fracture. - Problem is new. - Symptoms have improved. Signatures: Dispatcher [employer] EDND Abimbola Peck RN RN aj1 Eric Shaw MD MD kdr Jeisno Harris PA PA cp Corrections: (The following items were deleted from the chart) 15:55 15:43 Ibuprofen 800 mg PO once; may give if negative ordered. cp cp 18:05 16:49 12/18/2019 16:49 Discharged to Home. Impression: Fracture of fifth metatarsal aj1 bone - right foot. Condition is Stable. Forms are Medication Reconciliation Form, Thank You Letter, Antibiotic Education, Prescription Opioid Use. Follow up: Jaciel Nettles; When: 2 - 3 days; Reason: right foot fracture. Problem is new. Symptoms have improved. cp
--- NOTE | 2019-12-18 16:50 | ER ---
Nurse's Notes [facility] Name: Ghazal Fong Age: 29 yrs Sex: Female : 1990 Arrival Date: 12/18/2019 Time: 15:11 Bed 27 Private MD: Diagnosis: Fracture of fifth metatarsal bone-right foot Presentation: 12/17 15:35 Chief complaint: Patient states: She started to fall this morning at 1000, but she aj1 caught herself by grabbing the truck door. Since then she has had pain to the right foot that it worse with weight bearing. Patient states that she is currently 7 months . Coronavirus screen: The patient has NOT traveled to a country currently being monitored by the CDC within the last 14 days. Ebola Screen: Patient denies travel to an Ebola-affected area in the 21 days before illness onset. Initial Sepsis Screen: Does the patient meet any 2 criteria? No. Patient's initial sepsis screen is negative. Does the patient have a suspected source of infection? No. Patient's initial sepsis screen is negative. Risk Assessment: Do you want to hurt yourself or someone else? Patient reports no desire to harm self or others. 15:35 Method Of Arrival: Wheelchair aj1 15:35 Acuity: JOEL 4 aj1 Triage Assessment: 15:37 General: Appears in no apparent distress. uncomfortable, Behavior is cooperative, aj1 crying. Pain: Complains of pain in right foot. Musculoskeletal: Swelling present in right foot. 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 - Social history:: Smoking status: Patient/guardian denies using tobacco. Screenin:37 Abuse screen: Denies threats or abuse. Denies injuries from another. Nutritional aj1 screening: No deficits noted. Tuberculosis screening: No symptoms or risk factors identified. 16:14 Fall Risk None identified. aj1 Assessment: 15:37 General: Appears in no apparent distress. uncomfortable, Behavior is cooperative, aj1 crying. Pain: Complains of pain in right foot Pain currently is 8 out of 10 on a pain scale. Aggravated by repositioning, weight bearing. Neuro: Level of Consciousness is awake, alert, obeys commands, Oriented to person, place, time, situation. Cardiovascular: Patient's skin is warm and dry. Respiratory: Airway is patent Respiratory effort is even, unlabored, Respiratory pattern is regular, symmetrical. GI: No signs and/or symptoms were reported involving the gastrointestinal system. : No signs and/or symptoms were reported regarding the genitourinary system. EENT: No signs and/or symptoms were reported regarding the EENT system. Derm: No signs and/or symptoms reported regarding the dermatologic system. Skin is pink, warm \T\ dry. normal. Musculoskeletal: Swelling present in right foot. 16:13 Reassessment: Patient appears in no apparent distress at this time. No changes from 1 previously documented assessment. Patient and/or family updated on plan of care and expected duration. Pain level reassessed. Patient is alert, oriented x 3, equal unlabored respirations, skin warm/dry/pink. 17:15 Reassessment: Patient appears in no apparent distress at this time. No changes from aj1 previously documented assessment. Patient and/or family updated on plan of care and expected duration. Pain level reassessed. Patient is alert, oriented x 3, equal unlabored respirations, skin warm/dry/pink. 18:03 Reassessment: Patient appears in no apparent distress at this time. No changes from aj1 previously documented assessment. Patient and/or family updated on plan of care and expected duration. Pain level reassessed. Patient is alert, oriented x 3, equal unlabored respirations, skin warm/dry/pink. Vital Signs: 15:35 BP 138 / 90; Pulse 111; Resp 20; Temp 97.5; Pulse Ox 98% on R/A; Weight 99.34 kg (R); aj1 Height 5 ft. 5 in. (165.10 cm) (R); Pain 8/10; 16:30 BP 119 / 71; Pulse 102; Resp 20; Pulse Ox 98% on R/A; aj1 17:30 BP 130 / 65; Pulse 103; Resp 18; Pulse Ox 100% on R/A; aj1 15:35 Body Mass Index 36.44 (99.34 kg, 165.10 cm) aj1 ED Course: 15:11 Patient arrived in ED. mr 15:12 Jeison Harris PA is PHCP. cp 15:12 Eric Shaw MD is Attending Physician. cp 15:34 Abimbola ePck, RN is Primary Nurse. aj1 15:36 Triage completed. aj1 15:37 Arm band placed on. aj1 15:37 Patient has correct armband on for positive identification. Bed in low position. Call aj1 light in reach. Side rails up X 1. 15:37 No provider procedures requiring assistance completed. aj1 16:04 XRAY Foot RIGHT 3 View In Process Unspecified. EDMS 16:48 Jaciel Nettles MD is Referral Physician. cp 17:30 Patient did not have IV access during this emergency room visit. aj1 Administered Medications: 15:55 CANCELLED (Physician Discretion): Ibuprofen 800 mg PO once; may give if negative cp 16:02 Drug: Tylenol 650 mg Route: PO; aj1 Outcome: 16:49 Discharge ordered by MD. cp 18:05 Discharged to home via wheelchair, with family. aj1 18:05 Condition: good 18:05 Discharge instructions given to patient, Instructed on discharge instructions, follow up and referral plans. crutch walking, splint care Demonstrated understanding of instructions, follow-up care, splint care. 18:05 Patient left the ED. aj1 Signatures: Dispatcher [employer] EDSD Abimbola Peck, RN RN aj1 Ramya Sandhu mr Jeison Harris PA PA cp Corrections: (The following items were deleted from the chart) 16:14 16:14 Patient did not have IV access during this emergency room visit. aj1 aj1 16:14 16:14 Discharged to home ambulatory, aj1 aj1 16:14 16:14 Condition: good aj1 aj1 16:14 16:14 Discharge instructions given to patient, Instructed on discharge instructions, aj1 follow up and referral plans. Demonstrated understanding of instructions, follow-up care, aj1
== END 2019-12-18 18:05 | disposition home or self-care (01) ==
LOC: ER 15:09
PROC: 2W3QX1Z Immobilization of Right Lower Leg using Splint (ICD-10-PCS; principal; 2019-12-18)
DX: O26.892 Other specified pregnancy related conditions, second trimester (principal); S92.351A Displaced fracture of fifth metatarsal bone, right foot, initial encounter for closed fracture; X58.XXXA Exposure to other specified factors, initial encounter; Y93.9 Activity, unspecified; Y92.9 Unspecified place or not applicable; Z3A.28 28 weeks gestation of pregnancy
CPT/HCPCS: 99283

== ENCOUNTER 2021-02-10 12:16 | Emergency (ER) | payer OTHER ==
--- OUTSIDE RECORDS SUMMARY | 2021-02-10 12:20 | XMS REPORT | Continuity of Care Document ---
:1990 Author Organization [facility] t Address [address] [place] [address] Care Team Providers Name Role Phone Yumiko Galindo Primary Care Physician Kalee BENTLEY C Attending Clinician Doctor Unassigned, Name Attending Clinician Unavailable Payers Payer Name Policy Type Policy Effective Expiration Source Number Date Date [facility] [id number] 2019 [facility] 00:00:00 [place] Me dical MEDICAIDCOMMUNITY Branch HEALTH CHOICE [id number]/2018-Present[id number], [place] [address]Medicaid Advance Directives Directive Decision Effective Termination Comments Source Date Date Healthcare Agents on N/A [facility] FileNameRelation[facility] Hospitalealcare [facility] Agent Medical RelationshipCommunicationSan Patricio Branch Cordmart[facility] hospitalMother[facility] Care [phone] (Home) Problems Condition Condition Condition Status Onset Resolution Last Treating Co mments Source Name Details Category Date Date Treatment Clinician Date Supervisio Supervisio Disease Active U nivers n of n of 5-07 ity of high-risk high-risk 00:00: Jignesh s 00 [facility] Branch History of History of Disease Active U nivers 5-07 ity of section section 00:00: [address] Branch History of History of Disease Active Overview : Univers pre-eclamp pre-eclamp 5-07 With 2009 ity of andres andres 00:00: Medical Branch History of History of Disease Active Overview : Univers gestationa gestationa 5-07 In last i ty of l diabetes l diabetes 00:00: Medical Branch Multiparit Multiparit Disease Active U nivers y y 5-07 ity of 00:00: [place] [facility] Obesity in Obesity in Disease Active U nivers 5-24 ity of 00:00: [place] [facility] Closed Closed Disease Active Univers fracture fracture 3-16 ity of of right of right 00:00: [place] foot, foot, 00 Medical initial initial Branch encounter encounter Epilepsy, Epilepsy, Disease Active Overview: Univers generalize generalize 8-12 Last it y of d, d, 00:00: seizure [place] convulsive convulsive 00 was Me dical 03/2010 Branch Other Other Disease Resolve 2021-02-10 2021-02-10 Univers general general d 7-06 00:00:00 14:57:24 [place]y of counseling [place] advice and advice 00 [place] for for Branch contracept contracept lavinia lavinia management management Routine Routine Disease Resolve 2020-04-11 2020-04-11 Univers d 6-15 00:00:00 16:05:39 [place] follow[place] Obesity in Obesity in Disease Resolve 2018-102020-04-11 2020-04-11 Univers d 0-03 00:00:00 16:05:55 ity of 00:00: [place] [facility] 39 weeks 39 weeks Disease Resolve 2020-03-21 2020-03-21 Univers gestation gestation d 5-24 00:00:00 16:45:41 ity of of of 00:00: [place] 00 [facility] Branch Need for Need for Disease Resolve 2020-03-21 2020-03-21 Univers Tdap Tdap d 3-16 00:00:00 16:45:29 [place]y of vaccinatio vaccinatio [place] Desires Desires Disease Resolve 2020-03-21 2020-03-21 Univers vaginal vaginal d - 00:00:00 16:45:36 ity of 00:00: [place] after after 00 Medical Branch trial trial Previous Previous Disease Resolve 2018-102020-03-21 2020-03-21 Univers d 10-13 00:00:00 16:45:23 it y of delivery delivery 00:00: [place] affecting affecting 00 Medi lashell , , Br anch antepartum antepartum Supervisio Supervisio Disease Resolve 2018-102020-03-21 2020-03-21 Univers n of high n of high d 0-03 00:00:00 16:45:19 ity of risk risk 00:00: [place] , , 00 Me dical antepartum antepartum Br anch Multiparit Multiparit Disease Resolve 2018-102020-03-21 2020-03-21 Univers y y d 0-03 00:00:00 16:45:28 ity of 00:00: [place] 00 Medical Branch History of History of Disease Resolve 2018-102020-03-21 2020-03-21 Univers pre-eclamp pre-eclamp d 0-03 00:00:00 16:45:33 ity of andres andres 00:00: [place] 00 Medical Branch History of History of Disease Resolve 2018-102019-08-21 2019-08-21 Univers pre-eclamp pre-eclamp d 10-13 00:00:00 16:24:49 ity of andres in andres in 00:00: [place] prior prior 00 Medical , , Br anch currently currently History of History of Disease Resolve 2018-102019-08-21 2019-08-21 Univers seizures seizures d - 00:00:00 16:24:52 it y of 00:00: [place] 00 Medical Branch Nausea and Nausea and Disease Resolve 2018-102019-08-21 2019-08-21 Univers vomiting vomiting d 0- 00:00:00 16:24:47 it y of during during 00:00: [place] 00 [facility] Branch UTI in UTI in Disease Resolve 2018-102019-08-21 2019-08-21 Univers d 0-25 00:00:00 16:24:32 ity of 00:00: [place] 00 Medical Branch BV BV Disease Resolve 2018-102019-08-21 2019-08-21 Univers (bacterial (bacterial d 0-04 00:00:00 16:24:31 ity of vaginosis) vaginosis[place] History of History of Disease Resolve 2018-102019-08-21 2019-08-21 Univers d 0-03 00:00:00 16:24:40 it y of section section 00:00: [place] 00 Medical Branch Flu Flu Disease Resolve 2018-102019-08-21 2019-08-21 Univers vaccine vaccine d 0-03 00:00:00 16:24:46 ity of need need 00:00: [place] 00 Medical Branch Former Former Disease Resolve 2019-08-21 2019-08-21 Univers tobacco tobacco d 03-14 00:00:00 16:24:39 ity of use use 00:00: [place] [facility] Contracept Contracept Disease Resolve 2019-08-21 2019-08-21 Univers lavinia lavinia d - 00:00:00 16:24:38 [place] of management management [place] Well woman Well woman Disease Resolve 2019-07-09 2019-07-09 Univers exam exam d 4-16 00:00:00 14:19:50 ity of 00:00: [place] [facility] Obesity Obesity Disease Resolve 2019-07-09 2019-07-09 Univers (BMI (BMI d 08 00:00:00 14:19:49 ity of 30-39.9) 30-39.9) 00:00: [place] 00 Medical Branch Dysmenorrh Dysmenorrh Disease Resolve 2019-07-09 2019-07-09 Univers ea ea d - 00:00:00 14:19:33 ity of 00:00: [place] 00 Medical Branch Nexplanon Nexplanon Disease Resolve 2017-03-14 2017-03-14 Univers removal removal d 02-27 00:00:00 19:22:35 ity of 00:00: Medical Branch Nexplanon Nexplanon Disease Resolve 2017-03-14 2017-03-[address] d - 00:00:00 19:22:37 it y of 00:00: [place] [facility] Tobacco Tobacco Disease Resolve 2017-03-14 2017-03-14 Univers use use d 06-17 00:00:00 19:39:09 ity of disorder disorder 00:00: [place] [facility] Rubella Rubella Disease Resolve 2016-02-15 2016-02-15 Univers immune immune d 06-17 00:00:00 13:21:37 ity of 00:00: [place] [facility] Disease Resolve 2008-102013-06-17 2015-07-08 Univers delivery delivery d 11-11 00:00:00 23:05:39 [place] of [place] [facility] Antepartum Antepartum Disease Resolve 2008-102013-06-17 2015-07-08 Univers hypertensi hypertensi d 11-05 00:00:00 23:05:31 ity of on on 00:00: [address] Allergies, Adverse Reactions, Alerts This patient has no known allergies or adverse reactions. Social History Social Habit Start Date Stop Date Quantity Comments Source ASSERTION 2021-01-09 University of 00:00:00 [facility] Exposure to Not sure University of SARS-CoV-2 (event) [facility] Alcohol intake 2021-02-10 2021-02-10 Ex-drinker University of 00:00:00 00:00:00 (finding) [facility] Cigarettes smoked 2021-02-10 2021-02-10 Univers ity of current (pack per 00:00:00 00:00:00 [facility] ) - Reported Branch Cigarette 2021-02-10 2021-02-10 University of pack-years 00:00:00 00:00:00 [facility] Tobacco use and 2021-02-10 2021-02-10 Never used Universit y of exposure 00:00:00 00:00:00 [facility] History of tobacco 2012-07-09 2021-02-05 Cigarette Smoker University of use 00:00:00 00:00:00 [facility] Tobacco Comment 2019-07-09 2019-07-09 Socially only Univer sity of 00:00:00 00:00:00 [facility] Alcohol Comment 2019-07-09 2019-07-09 Stopped drinking Uni versity of 00:00:00 00:00:00 on 07/03/2019 [facility] Sex Assigned At [birth year] Universit y of 00:00:00 00:00:00 [facility] Smoking Status Start Date Stop Date Source Former smoker 2021-02-10 00:00:00 2021-02-10 [facility] [place] [facility] Medications Ordered Filled Start Stop Current Ordering Indication Dosage Frequency Signature Comments Components Source Medication Medication Date Date Medication? Clinician (SIG) Name Name PNV 67-iron Yes Supervision 1{each} Take 1 Univers ps-folate 5-07 of high Each by ity of no.1-dha 00:00: risk mouth [place] (VITAFOL 00 daily. Medi lashell ULTRA) 29 in first Branch mg iron- 1 trimester mg-200 mg Cap PNV 67-iron Yes Supervision 1{each} Take 1 Univers ps-folate 5-07 of high Each by ity of no.1-dha 00:00: risk mouth [place] (VITAFOL 00 daily. Medi lashell ULTRA) 29 in first Branch mg iron- 1 trimester mg-200 mg Cap PNV 67-iron Yes Supervision 1{each} Take 1 Univers ps-folate 5-07 of high Each by ity of no.1-dha 00:00: risk mouth [place] (VITAFOL 00 daily. Medi lashell ULTRA) 29 in first Branch mg iron- 1 trimester mg-200 mg Cap PNV 67-iron Yes Supervision 1{each} Take 1 Univers ps-folate 5-07 of high Each by ity of no.1-dha 00:00: risk mouth [place] (VITAFOL 00 daily. Medi lashell ULTRA) 29 in first Branch mg iron- 1 trimester mg-200 mg Cap CORY 0.35 2019-10- No S/P TAKE 1 Univ ers mg tablet 10-08- TABLET BY ity of 00:00: 00:00 section MOUTH [place] 00 :00 EVERY DAY Medical Branch CORY 0.35 2019-10- No S/P TAKE 1 Univ ers mg tablet 10-08- TABLET BY ity of 00:00: 00:00 section MOUTH [place] 00 :00 EVERY DAY Medical Branch CORY 0.35 2019-10- No S/P TAKE 1 Univ ers mg tablet 10-08 TABLET BY ity of 00:00: 00:00 section MOUTH [place] 00 :00 EVERY DAY Medical Branch CORY 0.35 2019-10- No S/P TAKE 1 Univ ers mg tablet 10-08 TABLET BY ity of 00:00: 00:00 section MOUTH [place] 00 :00 EVERY DAY Medical Branch CORY 0.35 2020- No Other TAKE 1 Uni vers mg tablet 04-12 general TABLET BY i ty of 00:00: 00:00 counseling MOUTH [place] 00 :00 and advice EVERY DAY Medi lashell for Branch contracepti ve management CORY 0.35 2020- No Other TAKE 1 Uni vers mg tablet 04-12 general TABLET BY i ty of 00:00: 00:00 counseling MOUTH [place] 00 :00 and advice EVERY DAY Medi lashell for Branch contracepti ve management CORY 0.35 2020- No Other TAKE 1 Uni vers mg tablet 04-12 general TABLET BY i ty of 00:00: 00:00 counseling MOUTH [place] 00 :00 and advice EVERY DAY Medi lashell for Branch contracepti ve management CORY 0.35 2020- No Other TAKE 1 Uni vers mg tablet 04-12 general TABLET BY i ty of 00:00: 00:00 counseling MOUTH [place] 00 :00 and advice EVERY DAY Medi lashell for Branch contracepti ve management docusate 2020- No S/P 240mg Take 1 Unive rs calcium 240 02-28 capsule by ity of mg capsule 00:00: 00:00 section mouth once [place] 00 :00 daily as Medical needed for Branch Constipati on. HYDROcodone 2020- No S/P 1{tbl} Take 1 U nivers -acetaminop 02-28 tablet by ity of hen 5-325 00:00: 00:00 section mouth [place] as mg tablet 00 :00 every 6 Medical (six) Branch hours as needed for Pain (scale 4-6) (If uncontroll ed by Ibuprofen) . ibuprofen 2020- No S/P 600mg Take 1 Univ ers 600 mg 02-28 tablet by ity of tablet 00:00: 00:00 section mouth [place] 00 :00 every 6 Medical (six) Branch hours. simethicone 2020- No S/P 160mg Take 2 Un eder 80 mg 5-25 05-07 tablets by ity of chewable 00:00: 00:00 [place] tablet 00 :00 after Medical meals and Branch at bedtime as needed for Gas. docusate 2020- No S/P 240mg Take 1 Unive rs calcium 240 5-25 05-07 capsule by ity of mg capsule 00:00: 00:00 section mouth once [place] 00 :00 daily as Medical needed for Branch Constipati on. HYDROcodone 2020- No S/P 1{tbl} Take 1 U nivers -acetaminop 5-25 05-07 tablet by ity of hen 5-325 00:00: 00:00 section mouth [place] as mg tablet 00 :00 every 6 Medical (six) Branch hours as needed for Pain (scale 4-6) (If uncontroll ed by Ibuprofen) . ibuprofen No S/P 600mg Take 1 Univ ers 600 mg 5-25 05-07 tablet by ity of tablet 00:00: 00:00 section mouth [place] 00 :00 every 6 Medical (six) Branch hours. simethicone 2020- No S/P 160mg Take 2 Un eder 80 mg 5-25 05-07 tablets by ity of chewable 00:00: 00:00 [place] tablet 00 :00 after Medical meals and Branch at bedtime as needed for Gas. docusate 2020- No S/P 240mg Take 1 Unive rs calcium 240 5-25 05-07 capsule by ity of mg capsule 00:00: 00:00 section mouth once [place] 00 :00 daily as Medical needed for Branch Constipati on. HYDROcodone 2020- No S/P 1{tbl} Take 1 U nivers -acetaminop 5-25 05-07 tablet by ity of hen 5-325 00:00: 00:00 section mouth [place] as mg tablet 00 :00 every 6 Medical (six) Branch hours as needed for Pain (scale 4-6) (If uncontroll ed by Ibuprofen) . ibuprofen 2020- No S/P 600mg Take 1 Univ ers 600 mg 5-25 05-07 tablet by ity of tablet 00:00: 00:00 section mouth [place] 00 :00 every 6 Medical (six) Branch hours. simethicone 2020- No S/P 160mg Take 2 Un eder 80 mg 5-25 05-07 tablets by ity of chewable 00:00: 00:00 [place] tablet 00 :00 after Medical meals and Branch at bedtime as needed for Gas. docusate 2020- No S/P 240mg Take 1 Unive rs calcium 240 5-25 05-07 capsule by ity of mg capsule 00:00: 00:00 section mouth once [place] 00 :00 daily as Medical needed for Branch Constipati on. HYDROcodone 2020- No S/P 1{tbl} Take 1 U nivers -acetaminop -25 05-07 tablet by ity of hen 5-325 00:00: 00:00 section mouth [place] as mg tablet 00 :00 every 6 Medical (six) Branch hours as needed for Pain (scale 4-6) (If uncontroll ed by Ibuprofen) . ibuprofen No S/P 600mg Take 1 Univ ers 600 mg 5-25 05-07 tablet by ity of tablet 00:00: 00:00 section mouth [place] 00 :00 every 6 Medical (six) Branch hours. simethicone 2020- No S/P 160mg Take 2 Un eder 80 mg 5-25 05-07 tablets by ity of chewable 00:00: 00:00 [place] tablet 00 :00 after Medical meals and Branch at bedtime as needed for Gas. Blood 2020- No Supervision Use as Un eder Pressure 3-31 05-07 of high directed ity of Monitor 00:00: 00:00 risk [place] (BLOOD 00 :00 , Medical PRESSURE antepartum Branc h KIT) Kit Blood 2020- No Supervision Use as Un eder Pressure 3-31 05-07 of high directed ity of Monitor 00:00: 00:00 risk [place] (BLOOD 00 :00 , Medical PRESSURE antepartum Branc h KIT) Kit Blood 2020- No Supervision Use as Un eder Pressure 3-31 05-07 of high directed ity of Monitor 00:00: 00:00 risk [place] (BLOOD 00 :00 , Medical PRESSURE antepartum Branc h KIT) Kit Blood 2020- No Supervision Use as Un eder Pressure 3-31 05-07 of high directed ity of Monitor 00:00: 00:00 risk [place] (BLOOD 00 :00 , Medical PRESSURE antepartum Branc h KIT) Kit PNV 67-iron 2018-10- No Supervision 1{each} Take 1 Univers ps-folate 0-04 05-07 of high Each by ity of no.1-dha 00:00: 00:00 risk mouth [place] (VITAFOL 00 :00 daily. Medi lashell ULTRA) 29 in first Branch mg iron- 1 trimester mg-200 mg Cap PNV 67-iron 2018-10- No Supervision 1{each} Take 1 Univers ps-folate 0-04 05-07 of high Each by ity of no.1-dha 00:00: 00:00 risk mouth [place] (VITAFOL 00 :00 daily. Medi lashell ULTRA) 29 in first Branch mg iron- 1 trimester mg-200 mg Cap PNV 67-iron 2018-10- No Supervision 1{each} Take 1 Univers ps-folate 0-04 05-07 of high Each by ity of no.1-dha 00:00: 00:00 risk mouth [place] (VITAFOL 00 :00 daily. Medi lashell ULTRA) 29 in first Branch mg iron- 1 trimester mg-200 mg Cap PNV 67-iron 2018-10- No Supervision 1{each} Take 1 Univers ps-folate 0-04 05-07 of high Each by ity of no.1-dha 00:00: 00:00 risk mouth [place] (VITAFOL 00 :00 daily. Medi lashell ULTRA) 29 in first Branch mg iron- 1 trimester mg-200 mg Cap Immunizations Ordered Filled Immunization Date Status Comments [facility] e Immunization Name Name Influenza Virus 2020-07-12 Completed Universit y of Vaccine Quad .5 mL 00:00:00 [place] Medical IM 6+ MO Branch Influenza Virus 2020-07-12 Completed Universit y of Vaccine [place] .5 mL 00:00:00 [place] Medical IM 6+ MO Branch Influenza Virus 2020-07-12 Completed Universit y of Vaccine Quad .5 mL 00:00:00 [facility] IM 6+ MO Branch Influenza Virus 2020-07-12 Completed Universit y of Vaccine Quad .5 mL 00:00:00 [place] Medical IM 6+ MO Branch Influenza Virus 2020-07-12 Completed Universit y of Vaccine [place] .5 mL 00:00:00 [place] Medical IM 6+ MO Branch TDAP (ADACEL) 2019-12-21 Completed University of VACCINE 00:00:00 [facility] TDAP (ADACEL) 2019-12-21 Completed University of VACCINE 00:00:00 [facility] TDAP (ADACEL) 2019-12-21 Completed University of VACCINE 00:00:00 [facility] TDAP (ADACEL) 2019-12-21 Completed University of VACCINE 00:00:00 [facility] TDAP (ADACEL) 2019-12-21 Completed University of VACCINE 00:00:00 [facility] Influenza Virus 2019-07-09 Completed Universit y of Vaccine Quad .5 mL 00:00:00 [facility] 6+ MO Branch Influenza Virus 2019-07-09 Completed Universit y of Vaccine Quad .5 mL 00:00:00 [place] Medical 6+ MO Branch Influenza Virus 2019-07-09 Completed Universit y of Vaccine Quad .5 mL 00:00:00 [place] Medical 6+ MO Branch Influenza Virus 2019-07-09 Completed Universit y of Vaccine Quad .5 mL 00:00:00 [place] Medical IM 6+ MO Branch Influenza Virus 2019-07-09 Completed Universit y of Vaccine Quad .5 mL 00:00:00 [facility] 6+ MO Branch TDAP 2017-03-14 Completed University of 00:00:00 [facility] HPV9 2017-03-14 Completed University of 00:00:00 [facility] TDAP 2017-03-14 Completed University of 00:00:00 [facility] Branch HPV9 2017-03-14 Completed University of 00:00:00 [facility] TDAP 2017-03-14 Completed University of 00:00:00 [facility] Branch HPV9 2017-03-14 Completed University of 00:00:00 [facility] Branch TDAP 2017-03-14 Completed University of 00:00:00 [facility] Branch HPV9 2017-03-14 Completed University of 00:00:00 [facility] TDAP 2017-03-14 Completed University of 00:00:00 [facility] Branch HPV9 2017-03-14 Completed University of 00:00:00 [facility] HPV9 2016-05-29 Completed University of 00:00:00 [facility] Branch HPV9 2016-05-29 Completed University of 00:00:00 [place] [facility] HPV9 2016-05-29 Completed University of 00:00:00 [place] [facility] HPV9 2016-05-29 Completed University of 00:00:00 [place] [facility] HPV9 2016-05-29 Completed University of 00:00:00 [facility] Branch HPV9 2016-02-14 Completed University of 00:00:00 [facility] Branch HPV9 2016-02-14 Completed University of 00:00:00 [place] [facility] HPV9 2016-02-14 Completed University of 00:00:00 [facility] Branch HPV9 2016-02-14 Completed University of 00:00:00 [facility] Branch HPV9 2016-02-14 Completed University of 00:00:00 [facility] Branch Rubella 2009-04-11 Completed University of 00:00:00 [facility] Branch Rubella 2009-04-11 Completed University of 00:00:00 [facility] Branch Rubella 2009-04-11 Completed University of 00:00:00 [facility] Branch Rubella 2009-04-11 Completed University of 00:00:00 [facility] Branch Rubella 2009-04-11 Completed University of 00:00:00 [facility] Td 2005-10-07 Completed University of 00:00:00 [facility] Td 2005-10-07 Completed University of 00:00:00 [facility] Td 2005-10-07 Completed University of 00:00:00 [facility] Td 2005-10-07 Completed University of 00:00:00 [facility] Td 2005-10-07 Completed University of 00:00:00 [facility] Vital Signs Vital Name Observation Time Observation Value Comments Source Body height 2021-02-10 14:34:00 167.6 cm [facility] Body weight 2021-02-10 14:34:00 90.833 [facility] BMI 2021-02-10 14:34:00 32.32 kg/m2 [facility] Systolic blood 2021-02-10 14:34:00 112 mm[Hg] Univer sity of pressure [facility] Diastolic blood 2021-02-10 14:34:00 73 mm[Hg] Unive rsity of pressure [facility] Heart rate 2021-02-10 14:34:00 80 /min [facility] Body temperature 2021-02-10 14:34:[address] [facility] [address] [facility] Res[facility] 2021-02-10 14:34:00 16 /min [facility] Body height 2021-02-10 14:34:00 167.6 cm Universi ty [facility] [place] [facility] Body weight 2021-02-10 14:34:00 90.833 kg Universi ty [facility] [place] [facility] BMI 2021-02-10 14:34:00 32.32 kg/m2 Universi ty [facility] [place] [facility] Systolic blood 2021-02-10 14:34:00 112 mm[Hg] Univer sity of pressure [facility] Diastolic blood 2021-02-10 14:34:00 73 mm[Hg] Unive rsity of [facility] Heart rate 2021-02-10 14:34:00 80 /min Universi ty [facility] [place] [facility] Body temperature 2021-02-10 14:34:00 36.83 Ismran [facility] Respiratory rate 2021-02-10 14:34:00 16 /min [facility] Procedures Procedure Date / Time Performed Performing Clinician Sour e POCT TEST 2021-02-10 14:39:00 Michelle Granda [facility] POCT URINALYSIS W/O 2021-02-10 14:39:00 Michelle Granda [facility] SPECIFIC GRAVITY [facility] REPORT OF 2021-02-10 05:01:00 [facility] Planned Activity Planned Date Details Comments Source Future Scheduled 2029-12-20 DTaP,Tdap,and Td Univers ity of Test 00:00:00 Vaccines (4 - Td) [facility] [code = Branch DTaP,Tdap,and Td Vaccines (4 - Td)] Future Scheduled 2029-12-20 DTaP,Tdap,and Td Univers ity of Test 00:00:00 Vaccines (4 - Td) [facility] [code = Branch DTaP,Tdap,and Td Vaccines (4 - Td)] Future Scheduled 2029-12-20 DTaP,Tdap,and Td Univers ity of Test 00:00:00 Vaccines (4 - Td) [place] Medi lashell [code = Branch DTaP,Tdap,and Td Vaccines (4 - Td)] Future Scheduled 2029-12-20 DTaP,Tdap,and Td Univers ity of Test 00:00:00 Vaccines (4 - Td) [place] Medi lashell [code = Branch DTaP,Tdap,and Td Vaccines (4 - Td)] Future Scheduled 2029-12-20 DTaP,Tdap,and Td Univers ity of Test 00:00:00 Vaccines (4 - Td) [place] Medi lashell [code = Branch DTaP,Tdap,and Td Vaccines (4 - Td)] Future Scheduled 2022-02-10 SARS-CoV-2 Postponed from Universit y of Test 00:00:00 (COVID-19) 2007 [place] [facility] Vaccine (1) [code (Refused) Branch = SARS-CoV-2 (COVID-19) Vaccine (1)] Future Scheduled 2022-02-10 SARS-CoV-2 Postponed from Universit y of Test 00:00:00 (COVID-19) 2007 [place] Medical Vaccine (1) [code (Refused) Branch = SARS-CoV-2 (COVID-19) Vaccine (1)] Future Scheduled 2022-02-10 SARS-CoV-2 Postponed from Universit y of Test 00:00:00 (COVID-19) 2007 [place] [facility] Vaccine (1) [code (Refused) Branch = SARS-CoV-2 (COVID-19) Vaccine (1)] Future Scheduled 2022-02-10 SARS-CoV-2 Postponed from Universit y of Test 00:00:00 (COVID-19) 2007 [place] [facility] Vaccine (1) [code (Refused) Branch = SARS-CoV-2 (COVID-19) Vaccine (1)] Future Scheduled 2022-02-10 SARS-CoV-2 Postponed from Universit y of Test 00:00:00 (COVID-19) 2007 [place] Medical Vaccine (1) [code (Refused) Branch = SARS-CoV-2 (COVID-19) Vaccine (1)] Future Scheduled 2022-01-20 Screening for University of Test 00:00:00 malignant [place] [facility] neoplasm of Branch cervix (procedure) [code = 305590687] Future Scheduled 2022-01-20 Screening for [facility] 00:[facility]:00 [facility] neoplasm of [facility] cervix (procedure) [code = 034904435] Future Scheduled 2022-01-20 Screening for [facility] 00:00:00 malignant [facility] neoplasm of Branch cervix (procedure) [code = 976846904] Future Scheduled 2022-01-20 Screening for [facility] 00:00:00 malignant [facility] neoplasm of Branch cervix (procedure) [code = 194672213] Future Scheduled 2022-01-20 Screening for [facility] 00:00:00 malignant [facility] neoplasm of Branch cervix (procedure) [code = 863568024] Future Scheduled 2021-02-23 Depression [facility] 00:00:00 screening [facility] (procedure) [code Branch = 830137305] Future Scheduled 2021-02-23 Depression [facility] 00:00:00 screening [facility] (procedure) [code Branch = 594521961] Future Scheduled 2021-02-23 Depression [facility] 00:00:00 screening [facility] (procedure) [code Branch = 752455554] Future Scheduled 2021-02-23 Depression [facility] 00:00:00 screening [facility] (procedure) [code Branch = 545465442] Future Scheduled 2021-02-23 Depression [facility] 00:00:00 screening [facility] (procedure) [code Branch = 473563564] Future Scheduled 2021-02-11 Hepatitis C Postponed from [facility] 00:00:00 screening 2009 [facility] (procedure) [code (Alternative Branch = 049823791] Guidelines) Future Scheduled 2021-02-11 Hepatitis C Postponed from [facility] 00:00:00 screening 2009 [facility] (procedure) [code (Alternative Branch = 082221270] Guidelines) Future Scheduled 2021-02-11 Hepatitis C Postponed from [facility] 00:00:00 screening 2009 [facility] (procedure) [code (Alternative Branch = 676985197] Guidelines) Future Scheduled 2021-02-11 Hepatitis C Postponed from [facility] 00:00:00 screening 2009 [facility] (procedure) [code (Alternative Branch = 724766901] Guidelines) Future Scheduled 2021-02-11 Hepatitis C Postponed from [facility] 00:00:00 screening 2009 [facility] (procedure) [code (Alternative Branch = 043413513] Guidelines) Diagnostic Test 2021-02-10 GALV ONLY - Expected: [place] [facility] Pending 00:00:00 SYPHILIS IGG/IGM 02/10/2021, [facility] [place] [facility] [code = 30875-7] Expires: Branch 02/10/2022 Diagnostic Test 2021-02-10 URINE CULTURE Expected: [facility] Pending 00:00:00 [code = 630-4] 02/10/2021, [facility] Expires: Branch 02/10/2022 Diagnostic Test 2021-02-10 VZV ANTIBODY Expected: [place] [facility] Pending 00:00:00 SCREEN [code = 02/10/2021, [facility] 79856-3] Expires: Branch 02/10/2022 Diagnostic Test 2021-02-10 PROTEIN QUANT Expected: [facility] Pending 00:00:00 U/24H [code = 02/10/2021, [facility] 74117-4] Expires: Branch 02/10/2022 Diagnostic Test 2021-02-10 CBC WITH DIFF Expected: [facility] Pending 00:00:00 [code = 09423-9] 02/10/2021, [facility] Expires: Branch 02/10/2022 Diagnostic Test 2021-02-10 HEPATITIS B Expected: [place] [facility] Pending 00:00:00 SURFACE [facility]20[facility] [[facility] = 78970-4[facility] Expires: Branch 02/10/2022 Diagnostic Test 2021-02-10 HIV 1/2 AG-AB Expected: [facility] Pending 00:00:00 WITH REFLEX [code 02/10/2021, [facility] lashell = 65117-1] Expires: Branch 02/10/2022 Diagnostic Test 2021-02-10 WORKUP, Expected: [facility] Pending 00:00:00 BLOOD BANK [code 02/10/2021, [facility] [place] [facility] = 3113] Expires: Branch 02/10/2022 Diagnostic Test 2021-02-10 RUBELLA SCREEN Expected: [facility] Pending 00:00:00 (JUNIOR) IGG [code 02/10/2021, [facility] lashell = 08305-0] Expires: Branch 02/10/2022 Diagnostic Test 2021-02-10 GALV ONLY - Expected: [place] [facility] Pending 00:00:00 SYPHILIS IGG/IGM 02/10/2021, [facility] [code = 63768-7] Expires: Branch 02/10/2022 Diagnostic Test 2021-02-10 URINE CULTURE Expected: [facility] Pending 00:00:00 [code = 630-4] 02/10/2021, [facility] Expires: Branch 02/10/2022 Diagnostic Test 2021-02-10 VZV ANTIBODY Expected: [place] [facility] Pending 00:00:00 SCREEN [code = 02/10/2021, [facility] 54608-2] Expires: Branch 02/10/2022 Diagnostic Test 2021-02-10 PROTEIN QUANT Expected: [facility] Pending 00:00:00 U/24H [code = 02/10/2021, [facility] 02080-3] Expires: Branch 02/10/2022 Diagnostic Test 2021-02-10 CBC WITH DIFF Expected: [facility] Pending 00:00:00 [code = 17100-1] 02/10/2021, [facility] Expires: Branch 02/10/2022 Diagnostic Test 2021-02-10 HEPATITIS B Expected: [place] [facility] Pending 00:00:00 SURFACE ANTIGEN 02/10/2021, [facility] [code = 53529-7] Expires: [place] 02/10/2022 Diagnostic Test 2021-02-10 HIV 1/2 AG-AB Expected: [facility] Pending 00:00:00 WITH REFLEX [code 02/10/2021, [facility] lashell = 64635-1] Expires: Branch 02/10/2022 Diagnostic Test 2021-02-10 WORKUP, Expected: [facility] Pending 00:00:00 BLOOD BANK [code 02/10/2021, [facility] = 3113] Expires: Branch 02/10/2022 Diagnostic Test 2021-02-10 RUBELLA SCREEN Expected: [facility] Pending 00:00:00 (JUNIOR) IGG [code 02/10/2021, [facility] lashell = 11320-8] Expires: Branch 02/10/2022 Diagnostic Test 2021-02-10 GALV ONLY - Expected: [place] [facility] Pending 00:00:00 SYPHILIS IGG/IGM 02/10/2021, [facility] [code = 83423-0] Expires: Branch 02/10/2022 Diagnostic Test 2021-02-10 URINE CULTURE Expected: [facility] 00:00:00 [code = 630-4] 02/10/2021, [facility] [place] [facility] Expires: Branch 02/10/2022 Diagnostic Test 2021-02-10 VZV ANTIBODY Expected: [place] [facility] Pending 00:00:00 SCREEN [code = 02/10/2021, [facility] 09710-7] Expires: Branch 02/10/2022 Diagnostic Test 2021-02-10 PROTEIN QUANT Expected: [facility] Pend 00:00:00 U/24H [code = 02/10/2021, [facility] 47385-2] Expires: Branch 02/10/2022 Diagnostic Test 2021-02-10 CBC WITH DIFF Expected: [facility] 00:00:00 [code = 25485-9] 02/10/2021, [facility] Expires: [place] 02/10/2022 Diagnostic Test 2021-02-10 HEPATITIS B Expected: [place] [facility] Pending 00:00:00 SURFACE ANTIGEN 02/10/2021, [facility] [code = 43948-9] Expires: Branch 02/10/2022 Diagnostic Test 2021-02-10 HIV 1/2 AG-AB Expected: [facility] 00:00:00 WITH REFLEX [code 02/10/2021, [facility] lashell = 19976-3] Expires: [place] 02/10/2022 Diagnostic Test 2021-02-10 WORKUP, Expected: [facility] Pending 00:00:00 BLOOD BANK [code 02/10/2021, [facility] al = 3113] Expires: Branch 02/10/2022 Diagnostic Test 2021-02-10 RUBELLA SCREEN Expected: [facility] Pend 00:00:00 (JUNIOR) IGG [code 02/10/2021, [facility] lashell = 82897-8] Expires: [place] 02/10/2022 Diagnostic Test 2021-02-10 GALV ONLY - Expected: [place] [facility] Pending 00:00:00 SYPHILIS IGG/IGM 02/10/2021, [facility] [place] [facility] [code = 93513-4] Expires: Branch 02/10/2022 Diagnostic Test 2021-02-10 URINE CULTURE Expected: [facility] Pending 00:00:00 [code = 630-4] 02/10/2021, [facility] [place] [facility] Expires: Branch 02/10/2022 Diagnostic Test 2021-02-10 VZV ANTIBODY Expected: [place] [facility] Pending 00:00:00 SCREEN [code = 02/10/2021, [facility] 04687-0] Expires: Branch 02/10/2022 Diagnostic Test 2021-02-10 PROTEIN QUANT Expected: [facility] Pending 00:00:00 U/24H [code = 02/10/2021, [facility] 03474-2] Expires: Branch 02/10/2022 Diagnostic Test 2021-02-10 CBC WITH DIFF [facility] [code = 02860-0] 02/10/2021, [facility] Expires: Branch 02/10/2022 Diagnostic Test 2021-02-10 HEPATITIS B Expected: [facility] Pending 00:00:00 SURFACE ANTIGEN 02/10/2021, [facility] [code = 06489-0] Expires: Branch 02/10/2022 Diagnostic Test 2021-02-10 HIV 1/2 AG-AB Expected: [facility] Pending 00:00:00 WITH REFLEX [code 02/10/2021, [facility] [place] = 03667-0] Expires: [place] 02/10/2022 Diagnostic Test 2021-02-10 WORKUP, Expected: [facility] Pending 00:00:00 BLOOD BANK [code 02/10/2021, [facility] = 3113] Expires: Branch 02/10/2022 Diagnostic Test 2021-02-10 RUBELLA SCREEN [facility] (JUNIOR) IGG [code 02/10/2021, [facility] lashell = 07987-9] Expires: Branch 02/10/2022 Future Scheduled GLUCOSE 1 HOUR Ordered: [facility] POST PRANDIAL 02/10/2021 [facility] [code = 56146-1] Branch Future Scheduled GLUCOSE 1 HOUR Ordered: [facility] POST PRANDIAL 02/10/2021 [facility] [code = 31800-8] Branch Future Scheduled GLUCOSE 1 HOUR Ordered: [facility] POST PRANDIAL 02/10/2021 [facility] [code = 76001-2] Branch Future Scheduled GLUCOSE 1 HOUR [facility] POST PRANDIAL [facility] [code = 05509-9] Branch Future Scheduled CBC WITH DIFF [facility] [code = 80707-3] [facility] Future Scheduled HEPATITIS B [facility] SURFACE ANTIGEN [facility] [code = 89727-1] Branch Future Scheduled HIV 1/2 AG-AB [facility] WITH REFLEX [code [facility] lashell = 01409-3] Branch Future Scheduled RUBELLA SCREEN [facility] (JUNIOR) IGG [code [facility] = 67174-5] Branch Future Scheduled GALV ONLY - [facility] SYPHILIS IGG/IGM [facility] [code = 79279-0] Branch Future Scheduled URINE CULTURE [facility] [code = 630-4] [facility] Future Scheduled VZV ANTIBODY [facility] SCREEN [code = [facility] 85893-3] Branch Future Scheduled POCT URINALYSIS W 20 Occurrences [facility] SPECIFIC GRAVITY starting [facility] [code = 71153] 02/10/2021 until Branch 12/07/2021 Future Scheduled POCT URINALYSIS W 20 Occurrences [facility] SPECIFIC GRAVITY starting [facility] [code = 49364] 02/10/2021 until Branch 12/07/2021 Future Scheduled POCT URINALYSIS W 20 Occurrences [facility] SPECIFIC GRAVITY starting [facility] [code = 47426] 02/10/2021 until Branch 12/07/2021 Future Scheduled POCT URINALYSIS W 20 Occurrences Univ [facility] SPECIFIC GRAVITY starting [facility] [code = 71807] 02/10/2021 until Branch 12/07/2021 Encounters Start End Encounter Admission Attending Care Care Encounter Source Date/Time Date/Time Type Type Clinicians Facility Department ID 2021-02-10 2021-02-10 Initial [place], [facility] [id number] 09:24:15 10:36:45 Michelle C OTOLOGIST [id number] Visit REGIONAL [id number] MATERNAL [id number] & CHILD [address] [place] [address] Results Test Description Test Time Test Comments Results Result Comments Source POCT URINALYSIS W/O SPECIFIC GRAVITY 2021-02-10 14:40:00 Test Item Value Reference Range Interpretation Comme nts POCT PH U (test code = 3254) 5 mg/dl 5-8 POCT U LEUK EST (test code = 3263) negative Negative - Negative POCT U NIT (test code = 3262) negative Negative - Negative POCT U PROT (test code = 3259) negative Negative - Negative POCT U GLU (test code = 3256) negative Negative - Negative POCT U KETONE (test code = 3258) negative Negative - Negative POCT U BLD (test code = 3257) negatie Negative - [facility] [id number] 14:40:00 Test Item Value Reference Range Interpretation Comments POCT PH U (test code = 3254) 5 mg/dl 5-8 POCT U LEUK EST (test code = negative Negative - Negative 3263) POCT U NIT (test code = 3262) negative Negative - Negative POCT U PROT (test code = 3259) negative Negative - Negative POCT U GLU (test code = 3256) negative Negative - Negative POCT U KETONE (test code = 3258) negative Negative - Negative POCT U BLD (test code = 3257) negatie Negative - [facility] [id number] 14:40:00 Test Item Value Reference Range Interpretation Comments POCT PH U (test code = 3254) 5 mg/dl 5-8 POCT U LEUK EST (test code = negative Negative - Negative 3263) POCT U NIT (test code = 3262) negative Negative - Negative POCT U PROT (test code = 3259) negative Negative - Negative POCT U GLU (test code = 3256) negative Negative - Negative POCT U KETONE (test code = 3258) negative Negative - Negative POCT U BLD (test code = 3257) negatie Negative - Negative [facility] [id number] 14:40:00 Test Item Value Reference Range Interpretation Comments POCT PH U (test code = 3254) 5 mg/dl 5-8 POCT U LEUK EST (test code = negative Negative - Negative 3263) POCT U NIT (test code = 3262) negative Negative - Negative POCT U PROT (test code = 3259) negative Negative - Negative POCT U GLU (test code = 3256) negative Negative - Negative POCT U KETONE (test code = 3258) negative Negative - Negative POCT U BLD (test code = 3257) negatie Negative - Negative [facility] [id number] 14:39:00 Test Item Value Reference Range Interpretation Comments POCT PREG (test code = 1605) Positive On board controls acceptable with C Yes Line (test code = 3574) POCT PREG LOT # (test code = 3575) PO[facility]REG TEST DATE (test code = 3576) [id number] 14:39:00 Test Item Value Reference Range Interpretation Comments POCT PREG (test code = 1605) Positive On board controls acceptable with C Yes Line (test code = 3574) POCT PREG LOT # (test code = 3575) POCT PREG TEST DATE (test code = 3576) [facility] [id number] 14:39:00 Test Item Value Reference Range Interpretation Comments POCT PREG (test code = 1605) Positive On board controls acceptable with C Yes Line (test code = 3574) POCT PREG LOT # (test code = 3575) POCT PREG TEST DATE (test code = 3576) [facility] [id number] 14:39:00 Test Item Value Reference Range Interpretation Comments POCT PREG (test code = 1605) Positive On board controls acceptable with C Yes Line (test code = 3574) POCT PREG LOT # (test code = 3575) POCT PREG TEST DATE (test code = 3576) [facility]
--- NOTE | 2021-02-10 13:39 | RAD REPORT ---
EXAM DESCRIPTION: RAD - Nasal Bones - 02/10/2021 1:34 pm CLINICAL HISTORY: nasal injury Pain and swelling COMPARISON: No comparisons FINDINGS: Nondisplaced fracture of the distal nasal bone is likely present. The paranasal sinuses an d mastoids are clear.
--- NOTE | 2021-02-10 14:11 | ER ---
Nurse's Notes [facility] Name: Ghazal Fong Age: 31 yrs Sex: Female : 1990 Arrival Date: 02/10/2021 Time: 12:20 Bed 13 Private MD: Diagnosis: Fracture of nasal bones Presentation: 02/10 12:22 Chief complaint: Patient states: nose injury today after tripping and falling. "I think sv my nose is broken." Denies LOC. Pt is currently 6 weeks . Coronavirus screen: Client denies travel out of the [place] in the last 14 days. At this time, the client does not indicate any symptoms associated with coronavirus-19. Ebola Screen: No symptoms or risks identified at this time. Risk Assessment: Do you want to hurt yourself or someone else? Patient reports no desire to harm self or others. Onset of symptoms was February 10, 2021. 12:22 Method Of Arrival: Ambulatory sv 12:22 Acuity: JOEL 3 sv 12:22 Acuity: JOEL 4 sv 12:26 Initial Sepsis Screen: Does the patient meet any 2 criteria? No. Patient's initial sv sepsis screen is negative. Does the patient have a suspected source of infection? No. Patient's initial sepsis screen is negative. 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 - Social history:: Smoking status: Patient denies any tobacco usage or history of. Vital Signs: 12:24 BP 114 / 72; Pulse 80; Resp 18; Temp 98.4(O); Pulse Ox 99% ; Weight 90.72 kg; Height 5 sv ft. 5 in. (165.10 cm); Pain 6/10; 12:24 Body Mass Index 33.28 (90.72 kg, 165.10 cm) sv ED Course: 12:20 Patient arrived in ED. mr 12:24 Triage completed. sv 12:24 Arm band placed on. sv 12:28 Fernando Lilly PA is PHCP. jm 12:28 Jeison Salcido MD is Attending Physician. ashm 13:31 Nasal Bones XRAY In Process Unspecified. EDMS 14:10 Ana Jacobs MD is Referral Physician. joan Administered Medications: No medications were administered Outcome: 14:10 Discharge ordered by . joan 14:48 Patient left the ED. tr6 Signatures: Dispatcher [employer] EDAna Choi, RN RN Fernando Lilly PA PA Ramya Colon mr Mamie Rosenberg RN RN tr6 Corrections: (The following items were deleted from the chart) 12: 12:22 Chief complaint: Patient states: nose injury today after tripping and falling. "I sv think my nose is broken." Denies LOC. sv 12: 12:24 Pulse 80bpm; Resp 18bpm; Pulse Ox 99%; 90.72 kg; Height 5 ft. 5 in.; BMI: 33.2; svsv
--- NOTE | 2021-02-10 14:11 | EDPHYS ---
Physician Documentation [facility] Name: Ghazal Fong Age: 31 yrs Sex: Female : 1990 Arrival Date: 02/10/2021 Time: 12:20 Bed 13 Private MD: ED Physician Jeison Salcido HPI: 02/10 14:05 This 31 yrs old Female presents to ER via Ambulatory with complaints of Nose jmm Problem. 14:05 The patient presents with nasal trauma. Onset: The symptoms/episode began/occurred jmm acutely, just prior to arrival. Modifying factors: The symptoms are alleviated by nothing. the symptoms are aggravated by nothing. Associated signs and symptoms: Loss of consciousness: the patient experienced no loss of consciousness. This is a 31 year old female with no chronic medical conditions that presents to the ED with complaints of nose swelling after tripping and hitting her face against the sidewalk. Denies vomiting, LOC, behavior change. Denies neck pain. 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 - Social history:: Smoking status: Patient denies any tobacco usage or history of. ROS: 14:05 Constitutional: Negative for fever, chills, and weight loss, Cardiovascular: Negative jmm for chest pain, palpitations, and edema, Respiratory: Negative for shortness of breath, cough, wheezing, and pleuritic chest pain. 14:05 ENT: Positive for injury or acute deformity. 14:05 All other systems are negative. Exam: 14:05 Constitutional: This is a well developed, well nourished patient who is awake, alert, jmm and in no acute distress. Head/Face: atraumatic. Eyes: EOMI, no conjunctival erythema appreciated 14:05 Neck: Trachea midline, Supple Chest/axilla: Normal chest wall appearance and motion. Cardiovascular: Regular rate and rhythm. No edema appreciated Respiratory: Normal respirations, no respiratory distress appreciated Abdomen/GI: Non distended, soft Back: Normal ROM 14:05 MS/ Extremity: Moves all extremities, no obvious deformities appreciated, no edema noted to the lower extremities Neuro: Awake and alert, normal gait Psych: Behavior is normal, Mood is normal, Patient is cooperative and pleasant 14:05 ENT: Nose: swelling noted, a nasal septal hematoma is not appreciated to either nostril. 14:05 Skin: abrasion noted to the nose. Vital Signs: 12:24 BP 114 / 72; Pulse 80; Resp 18; Temp 98.4(O); Pulse Ox 99% ; Weight 90.72 kg; Height 5 sv ft. 5 in. (165.10 cm); Pain 6/10; 12:24 Body Mass Index 33.28 (90.72 kg, 165.10 cm) sv MDM: 12:33 Patient medically screened. [facility] 14:05 Data reviewed: vital signs, nurses notes. Counseling: I had a detailed discussion with joan the patient and/or guardian regarding: the historical points, exam findings, and any diagnostic results supporting the discharge/admit diagnosis, radiology results, the need for outpatient follow up, to return to the emergency department if symptoms worsen or persist or if there are any questions or concerns that arise at home. ED course: Xray reveals nasal fracture. Patient prescribed oral abx. Advised to follow up with ENT for further evaluation. patient understood and agrees with the plan of care. . 02/10 12:34 Order name: Nasal Bones XRAY; Complete Time: 13:42 [facility] Administered Medications: No medications were administered Disposition: 02/10/21 14:10 Discharged to Home. Impression: Fracture of nasal bones. - Condition is Stable. - Discharge Instructions: Nasal Fracture. - Prescriptions for Cephalexin 500 mg Oral Capsule - take 1 capsule by ORAL route every 6 hours for 10 days; 40 capsule. - Medication Reconciliation Form, Thank You Letter, Antibiotic Education, Prescription Opioid Use form. - Follow up: Ana Jacobs MD; When: 2 - 3 days; Reason: Recheck today's complaints, Continuance of care, Re-evaluation by your physician. Addendum: 02/13/2021 08:49 Co-signature as Attending Physician, Jeison Salcido MD I agree with the assessment and c redd plan of care. Signatures: Dispatcher [employer] Ana Travis RN RN sv Anderson, Corey, MD MD cha Mickail, Joel, PA PA jmm Ramnanan, Tiffany RN RN tr6 Corrections: (The following items were deleted from the chart) 02/10 14:48 14:10 02/10/2021 14:10 Discharged to Home. Impression: Fracture of nasal bones. tr6 Condition is Stable. Forms are Medication Reconciliation Form, Thank You Letter, Antibiotic Education, Prescription Opioid Use. Follow up: Ana Jacobs; When: 2 - 3 days; Reason: Recheck today's complaints, Continuance of care, Re-evaluation by your physician. joan
[2021-02-10 14:54] VITALS: BP 114/72; TEMP 98.4; O2SAT 99
== END 2021-02-10 14:48 | disposition home or self-care (01) ==
LOC: ER 12:16
DX: S02.2XXA Fracture of nasal bones, initial encounter for closed fracture (principal); W01.198A Fall on same level from slipping, tripping and stumbling with subsequent striking against other object, initial encounter
CPT/HCPCS: 70160; 99282

== ENCOUNTER 2023-05-28 18:01 | Emergency (ER) | payer OTHER ==
--- OUTSIDE RECORDS SUMMARY | 2023-05-28 18:06 | XMS REPORT | Continuity of Care Document ---
:1990 Author Organization [facility] t Address [address] [place] [address] Care Team Providers Name Role Phone Pcp, Patient Does Not Have A Primary Care Physician [phone] TERRI GRIMALDO Attending Clinician Unavailable Terri Grimaldo CNM Attending Clinician Doctor Unassigned, [place] Attending Clinician Unavailable Terri Smith MA Attending Clinician Unavailable Suraj Estrada Attending Clinician Kalee Michelle OVIEDO Attending Clinician [phone] MICHELLE GRANDA Attending Clinician Unavailable SURAJ WALLACE Attending Clinician Unavailable Shital Hannah [facility]ending [facility] Attending Clinician Unavailable AMRCUS GOODWIN Attending Clinician Unavailable Storm Diaz MD Attending Clinician Marcus Goodwin MD Attending Clinician SHITAL FATIMA Attending Clinician Unavailable Puneet Perdomo Attending Clinician Unavailable JOSE J PAEZ Attending Clinician Unavailable Provider, Puneet Temp Attending Clinician Unavailable Jose J Montero Attending Clinician [phone] Ultrasound, Marcello Attending Clinician Unavailable Ephraim Salcido MD Attending Clinician NILA YU Attending Clinician Unavailable ROSEMARY LO Attending Clinician Unavailable MARCUS GOODWIN Admitting Clinician Unavailable Marcus Goodwin MD Admitting Clinician Payers Payer Name Policy Type Policy Number Effective Date Expiration Date Erika luciano REPLACED BY [facility] [id number] 2019 CHOICE MEDICAID 00:00:00 Problems Condition Condition Condition Status Onset Resolution Last Treating Co mments Source Name Details Category Date Date Treatment Clinician Date Depression Depression Disease Active U nivers , acute , acute 7-13 ity of 00:00: [place] 00 [facility] [place] Well woman Well woman Disease Active U nivers exam exam 1-31 ity of 00:00: [place] 00 [facility] [place] Disease Active U nivers depression depression 1-27 it y of 00:00: [place] 00 [facility] [place] COVID-19 COVID-19 Disease Active 2020-10 Unive rs virus IgG virus IgG 2- ity of antibody antibody 00:00: [place] detected detected 00 Medica l Branch History of History of Disease Active 2020-10 U nivers tubal tubal 1- ity of ligation ligation 00:00: [place] 00 [facility] [place] Obesity Obesity Disease Active Univers (BMI (BMI 6-08 ity of 30-39.9) 30-39.9) 00:00: [place] 00 [facility] [place] Epilepsy, Epilepsy, Disease Active Overview: Univers generalize generalize 8-12 Formattin ity of d, d, 00:00: g of this [place] convulsive convulsive 00 note Me dical might be Branch different from the original. Last seizure was 03/2010 Allergies, Adverse Reactions, Alerts Allergy Allergy Status Severity Reaction(s) Onset Inactive Treating Comm ents Source Name Type Date Date Clinician NO KNOWN Drug Active Univers ALLERGIE Class ity of S [facility] Social History Social Habit Start Date Stop Date Quantity Comments Source Exposure to Not sure University SARS-CoV-2 (event) [facility] Gender identity Universit y of [facility] Sexual orientation Univer sity of [facility] History SDOH University o f Alcohol Frequency [place] [facility] History SDMN University o f Alcohol Std Drinks [place] [facility] [place] History SDOH University o f Alcohol Binge [facility] Alcohol intake 2023-05-01 2023-05-01 Ex-drinker University of 00:00:00 00:00:00 (finding) [facility] History of Social 2023-05-01 2023-05-01 Univers ity of function 00:00:00 00:00:00 [facility] Cigarettes smoked 2023-04-17 2023-04-17 Univers ity of current (pack per 00:00:00 00:00:00 ) - Reported Branch Cigarette 2023-04-17 2023-04-17 University of pack-years 00:00:00 00:00:00 [facility] Tobacco use and 2023-04-17 2023-04-17 Smokeless Universit y of exposure 00:00:00 00:00:00 tobacco non-user [facility] dical [place] Tobacco Comment 2023-04-17 2023-04-17 Socially only Univer sity of 00:00:00 00:00:00 [facility] History of tobacco 2012-07-09 2021-02-05 Cigarette Smoker University of use 00:00:00 00:00:00 [facility] Alcohol Comment 2019-07-09 2019-07-09 Stopped drinking Uni versity of 00:00:00 00:00:00 on 07/03/2019 [facility] Sex [birth year] At [birth year] Universit y of 00:00:00 00:00:00 [facility] Smoking Status Start Date Stop Date Source Ex-smoker 2023-04-17 00:00:00 2023-04-17 00:00:00 Universi ty of [facility] Medications Ordered Filled Start Stop Current Ordering Indication Dosage Frequency Signature Comments Components Source Medication Medication Date Date Medication? Clinician (SIG) Name Name lidocaine 2 Yes [id number] Apply Univers % mucosal 7-20 jelly to ity of jelly 00:00: affected 00 site twice Medical a day as Branch needed for pain lidocaine 2 Yes [id number] Apply Univers % mucosal 7-20 jelly to ity of jelly 00:00: affected 00 site twice Medical a day as Branch needed for pain lidocaine 2 2022- Yes [id number] Apply Univers % mucosal 7-20 jelly to ity of jelly 00:00: affected [place] 00 site twice Medical a day as Branch needed for pain buPROPion Yes [id number] 150mg Take 1 U nivers SR 1-10 tablet by ity of (WELLBUTRIN 00:00: mouth [place] SR) 150 mg 00 daily. Medical SR tablet Branch buPROPion Yes [id number] 150mg Take 1 U nivers SR 1-10 tablet by ity of (WELLBUTRIN 00:00: mouth [place] SR) 150 mg 00 daily. Medical SR tablet Branch buPROPion Yes [id number] 150mg Take 1 U nivers SR 1-10 tablet by ity of (WELLBUTRIN 00:00: mouth [place] SR) 150 mg 00 daily. Medical SR tablet Branch buPROPion Yes [id number] 150mg Take 1 U nivers SR 1-10 tablet by ity of (WELLBUTRIN 00:00: mouth [place] SR) 150 mg 00 daily. Medical SR tablet Branch buPROPion Yes [id number] 150mg Take 1 U nivers SR 1-10 tablet by ity of (WELLBUTRIN 00:00: mouth [place] SR) 150 mg 00 daily. Medical SR tablet Branch buPROPion Yes [id number] 150mg Take 1 U nivers SR 1-10 tablet by ity of (WELLBUTRIN 00:00: mouth [place] SR) 150 mg 00 daily. Medical SR tablet Branch buPROPion Yes [id number] 150mg Take 1 U nivers SR 1-10 tablet by ity of (WELLBUTRIN 00:00: mouth [place] SR) 150 mg 00 daily. Medical SR tablet Branch buPROPion Yes [id number] 150mg Take 1 U nivers SR 1-10 tablet by ity of (WELLBUTRIN 00:00: mouth [place] SR) 150 mg 00 daily. Medical SR tablet Branch buPROPion 0 Yes [id number] 150mg Take 1 U nivers SR 1-10 tablet by ity of (WELLBUTRIN 00:00: mouth [place] SR) 150 mg 00 daily. Medical SR tablet Branch buPROPion 0 Yes [id number] 150mg Take 1 U nivers SR 1-10 tablet by ity of (WELLBUTRIN 00:00: mouth [place] SR) 150 mg 00 daily. Medical SR tablet Branch buPROPion Yes [id number] 150mg Take 1 U nivers SR 1-10 tablet by ity of (WELLBUTRIN 00:00: mouth [place] SR) 150 mg 00 daily. Medical SR tablet Branch buPROPion Yes [id number] 150mg Take 1 U nivers SR 1-10 tablet by ity of (WELLBUTRIN 00:00: mouth [place] SR) 150 mg 00 daily. Medical SR tablet Branch buPROPion Yes [id number] 150mg Take 1 U nivers SR 1-10 tablet by ity of (WELLBUTRIN 00:00: mouth [place] SR) 150 mg 00 daily. Medical SR tablet Branch 2020-10 Yes [id number] 1{tbl} Take 1 Univers vitamin 2-21 tablet by ity of w/FA tablet 00:00: mouth [place] 00 daily. Medical Branch docusate 2020-10 Yes [id number] 240mg Take 1 U nivers calcium 240 2-21 capsule by it y of mg capsule 00:00: mouth [place] 00 daily as Medical needed for Branch Constipati on. ferrous 2020-10 Yes [id number] 325mg Take 1 Un eder sulfate 325 2-21 tablet by ity of mg (65 mg 00:00: mouth 2 [place] iron) 00 (two) Medical tablet times Branch daily. ibuprofen 2020-10 Yes [id number] 600mg Take 1 Univers 600 mg 2-21 tablet by ity of tablet 00:00: mouth [place] 00 every 6 Medical (six) Branch hours as needed (Pain). Take with food or milk. 2020-10 Yes [id number] 1{tbl} Take 1 Univers vitamin 2-21 tablet by ity of w/FA tablet 00:00: mouth [place] 00 daily. Medical Branch docusate 2020-10 Yes [id number] 240mg Take 1 U nivers calcium 240 2-21 capsule by it y of mg capsule 00:00: mouth once [place] 00 daily as Medical needed for Branch Constipati on. ferrous 2020-10 Yes [id number] 325mg Take 1 Un eder sulfate 325 2-21 tablet by ity of mg (65 mg 00:00: mouth 2 [place] iron) 00 (two) Medical tablet times Branch daily. ibuprofen 2020-10 Yes [id number] 600mg Take 1 Univers 600 mg 2-21 tablet by ity of tablet 00:00: mouth [place] 00 every 6 Medical (six) Branch hours as needed (Pain). Take with food or milk. 2020-10 Yes [id number] 1{tbl} Take 1 Univers vitamin 2-21 tablet by ity of w/FA tablet 00:00: mouth [place] 00 daily. Medical Branch docusate 2020-10 Yes [id number] 240mg Take 1 U nivers calcium 240 2-21 capsule by it y of mg capsule 00:00: mouth once [place] 00 daily as Medical needed for Branch Constipati on. ferrous 2020-10 Yes [id number] 325mg Take 1 Un eder sulfate 325 2-21 tablet by ity of mg (65 mg 00:00: mouth 2 [place] iron) 00 (two) Medical tablet times Branch daily. ibuprofen 2020-10 Yes [id number] 600mg Take 1 Univers 600 mg 2-21 tablet by ity of tablet 00:00: mouth [place] 00 every 6 Medical (six) Branch hours as needed (Pain). Take with food or milk. 2020-10 Yes [id number] 1{tbl} Take 1 Univers vitamin 2-21 tablet by ity of w/FA tablet 00:00: mouth [place] 00 daily. Medical Branch docusate 2020-10 Yes [id number] 240mg Take 1 U nivers calcium 240 2-21 capsule by it y of mg capsule 00:00: mouth once [place] 00 daily as Medical needed for Branch Constipati on. ferrous 2020-10 Yes [id number] 325mg Take 1 Un eder sulfate 325 2-21 tablet by ity of mg (65 mg 00:00: mouth 2 [place] iron) 00 (two) Medical tablet times Branch daily. ibuprofen 2020-10 Yes [id number] 600mg Take 1 Univers 600 mg 2-21 tablet by ity of tablet 00:00: mouth [place] 00 every 6 Medical (six) Branch hours as needed (Pain). Take with food or milk. 2020-10 Yes [id number] 1{tbl} Take 1 Univers vitamin 2-21 tablet by ity of w/FA tablet 00:00: mouth [place] 00 daily. Medical Branch docusate 2020-10 Yes [id number] 240mg Take 1 U nivers calcium 240 2-21 capsule by it y of mg capsule 00:00: mouth once [place] 00 daily as Medical needed for Branch Constipati on. ferrous 2020-10 Yes [id number] 325mg Take 1 Un eder sulfate 325 2-21 tablet by ity of mg (65 mg 00:00: mouth 2 [place] iron) 00 (two) Medical tablet times Branch daily. ibuprofen 2020-10 Yes [id number] 600mg Take 1 Univers 600 mg 2-21 tablet by ity of tablet 00:00: mouth [place] 00 every 6 Medical (six) Branch hours as needed (Pain). Take with food or milk. 2020-10- No [id number] 1{tbl} Take 1 Univers vitamin 2-21 07-12 tablet by ity of w/FA tablet 00:00: 00:[place] :00 daily. Medical Branch docusate 2020-10- No [id number] 240mg Take 1 Univers calcium 240 2-21 07-12 capsule by i ty of mg capsule 00:00: 00:00 mouth once [place] 00 :00 daily as Medical needed for Branch Constipati on. ferrous 2020-10- No [id number] 325mg Take 1 U nivers sulfate 325 2-21 07-12 tablet by it y of mg (65 mg 00:00: 00:00 [place] iron[place] 00 :00 (two) Medical tablet times Branch daily. ibuprofen 2020-10- No [id number] 600mg Take 1 Univers 600 mg 2-21 07-12 tablet by ity of tablet 00:00: 00:00 mouth [place] 00 :00 every 6 Medical (six) Branch hours as needed (Pain). Take with food or milk. 2020-10- No [id number] 1{tbl} Take 1 Univers vitamin 2-21 07-12 tablet by ity of w/FA tablet 00:00: 00:[place] :00 daily. Medical Branch docusate 2020-10- No [id number] 240mg Take 1 Univers calcium 240 2-21 07-12 capsule by i ty of mg capsule 00:00: 00:00 mouth once [place] 00 :00 daily as Medical needed for Branch Constipati on. ferrous 2020-10- No [id number] 325mg Take 1 U nivers sulfate 325 11-27 tablet by it y of mg (65 mg 00:00: 00:00 [place] iron[place] 00 :00 (two) Medical tablet times Branch daily. ibuprofen 2020-103- No [id number] 600mg Take 1 Univers 600 mg 11-27 tablet by ity of tablet 00:00: 00:00 mouth [place] 00 :00 every 6 Medical (six) Branch hours as needed (Pain). Take with food or milk. Immunizations Ordered Filled Immunization Date Status Comments [facility] e Immunization Name Name [facility] 2021-08-08 Completed University of 00:00:00 [facility] TD 2021-08-08 Completed University of 00:00:00 [facility] TD 2021-08-08 Completed University of 00:00:00 [facility] TD 2021-08-08 Completed University of 00:00:00 [facility] 2021-08-08 Completed University of 00:00:00 [facility] TDAP 2021-08-08 Completed University of 00:00:00 [facility] TDAP 2021-08-08 Completed University of 00:00:00 [facility] TDAP 2021-08-08 Completed University of 00:00:00 [facility] TDAP 2021-08-08 Completed University of 00:00:00 [facility]08 [facility] 00:[facility]:00 [facility] TDAP 2021-08-08 Completed University of 00:00:00 [facility] Influenza Virus 2020-07-12 Completed Universit y of Vaccine [place] .5 mL 00:00:00 [place] [facility] IM 6+ MO Branch Influenza Virus 2020-07-12 Completed Universit y of Vaccine [place] .5 mL 00:00:00 [place] [facility] IM 6+ MO Branch Influenza Virus 2020-07-12 Completed Universit y of Vaccine [place] .5 mL 00:00:00 [place] [facility] IM 6+ MO Branch Influenza Virus 2020-07-12 Completed Universit y of Vaccine [place] .5 mL 00:00:00 [facility] IM 6+ MO Branch Influenza Virus 2020-07-12 Completed Universit y of Vaccine [place] .5 mL 00:00:00 [place] [facility] IM 6+ MO Branch Influenza Virus 2020-07-12 Completed Universit y of Vaccine [place] .5 mL 00:00:00 [place] [facility] IM 6+ MO Branch Influenza Virus 2020-07-12 Completed Universit y of Vaccine [place] .5 mL 00:00:00 [place] [facility] IM 6+ MO Branch Influenza Virus 2020-07-12 Completed Universit y of Vaccine [place] .5 mL 00:00:00 [place] [facility] IM 6+ MO Branch Influenza Virus 2020-07-12 Completed Universit y of Vaccine [place] .5 mL 00:00:00 [place] [facility] IM 6+ MO Branch Influenza Virus 2020-07-12 Completed Universit y of Vaccine [place] .5 mL 00:00:00 [place] [facility] IM 6+ MO Branch Influenza Virus 2020-07-12 Completed Universit y of Vaccine [place] .5 mL 00:00:00 [place] [facility] IM 6+ MO Branch Influenza Virus 2020-07-12 Completed Universit y of Vaccine [place] .5 mL 00:00:00 [place] [facility] IM 6+ MO Branch Influenza Virus 2020-07-12 Completed Universit y of Vaccine [place] .5 mL 00:00:00 [place] [facility] 6+ MO Branch TDAP (ADACEL) 2019-12-21 Completed University of VACCINE 00:00:00 [facility] TDAP (ADACEL) 2019-12-21 Completed University of VACCINE 00:00:00 [facility] TDAP (ADACEL) 2019-12-21 Completed University of VACCINE 00:00:00 [facility] TDAP (ADACEL) 2019-12-21 Completed University of VACCINE 00:00:00 [facility] TDAP (ADACEL) 2019-12-21 Completed University of VACCINE 00:00:00 [place] [facility] TDAP (ADACEL) 2019-12-21 Completed University of VACCINE 00:00:00 [place] [facility] TDAP (ADACEL) 2019-12-21 Completed University of VACCINE 00:00:00 [facility] Branch TDAP (ADACEL) 2019-12-21 Completed University of VACCINE 00:00:00 [facility] Branch TDAP (ADACEL) 2019-12-21 Completed University of VACCINE 00:00:00 [facility] TDAP (ADACEL) 2019-12-21 Completed University of VACCINE 00:00:00 [facility] TDAP (ADACEL) 2019-12-21 Completed University of VACCINE 00:00:00 [facility] TDAP (ADACEL) 2019-12-21 Completed University of VACCINE 00:00:00 [facility] TDAP (ADACEL) 2019-12-21 Completed University of VACCINE 00:00:00 [facility] Influenza Virus 2019-07-09 Completed Universit y of Vaccine [place] .5 mL 00:00:00 [place] [facility] IM 6+ MO Branch Influenza Virus 2019-07-09 Completed Universit y of Vaccine [place] .5 mL 00:00:00 [place] [facility] IM 6+ MO Branch Influenza Virus 2019-07-09 Completed Universit y of Vaccine [place] .5 mL 00:00:00 [place] [facility] IM 6+ MO Branch Influenza Virus 2019-07-09 Completed Universit y of Vaccine [place] .5 mL 00:00:00 [place] [facility] IM 6+ MO Branch Influenza Virus 2019-07-09 Completed Universit y of Vaccine [place] .5 mL 00:00:00 [place] [facility] IM 6+ MO Branch Influenza Virus 2019-07-09 Completed Universit y of Vaccine [place] .5 mL 00:00:00 [place] [facility] IM 6+ MO Branch Influenza Virus 2019-07-09 Completed Universit y of Vaccine [place] .5 mL 00:00:00 [place] [facility] IM 6+ MO Branch Influenza Virus 2019-07-09 Completed Universit y of Vaccine [place] .5 mL 00:00:00 [place] [facility] IM 6+ MO Branch Influenza Virus 2019-07-09 Completed Universit y of Vaccine [place] .5 mL 00:00:00 [place] [facility] IM 6+ MO Branch Influenza Virus 2019-07-09 Completed Universit y of Vaccine [place] .5 mL 00:00:00 [place] [facility] IM 6+ MO Branch Influenza Virus 2019-07-09 Completed Universit y of Vaccine [place] .5 mL 00:00:00 [place] [facility] IM 6+ MO Branch Influenza Virus 2019-07-09 Completed Universit y of Vaccine [place] .5 mL 00:00:00 [place] [facility] IM 6+ MO Branch Influenza Virus 2019-07-09 Completed Universit y of Vaccine [place] .5 mL 00:00:00 [place] [facility] IM 6+ MO Branch TDAP 2017-03-14 Completed University of 00:00:00 [facility] HPV9 2017-03-14 Completed University of 00:00:00 [facility] TDAP 2017-03-14 Completed University of 00:00:00 [facility] Branch HPV9 2017-03-14 Completed University of 00:00:00 [facility] TDAP 2017-03-14 Completed University of 00:00:00 [place] [facility] HPV9 2017-03-14 Completed University of 00:00:00 [place] [facility] TDAP 2017-03-14 Completed University of 00:00:00 [place] [facility] HPV9 2017-03-14 Completed University of 00:00:00 [place] [facility] TDAP 2017-03-14 Completed University of 00:00:00 [place] [facility] HPV9 2017-03-14 Completed University of 00:00:00 [place] [facility] TDAP 2017-03-14 Completed University of 00:00:00 [place] [facility] HPV9 2017-03-14 Completed University of 00:00:00 [place] [facility] TDAP 2017-03-14 Completed University of 00:00:00 [place] [facility] HPV9 2017-03-14 Completed University of 00:00:00 [place] [facility] TDAP 2017-03-14 Completed University of 00:00:00 [place] [facility] HPV9 2017-03-14 Completed University of 00:00:00 [place] [facility] TDAP 2017-03-14 Completed University of 00:00:00 [place] [facility] HPV9 2017-03-14 Completed University of 00:00:00 [place] [facility] TDAP 2017-03-14 Completed University of 00:00:00 [place] [facility] HPV9 2017-03-14 Completed University of 00:00:00 [place] [facility] TDAP 2017-03-14 Completed University of 00:00:00 [place] [facility] HPV9 2017-03-14 Completed University of 00:00:00 [place] [facility] TDAP 2017-03-14 Completed University of 00:00:00 [place] [facility] HPV9 2017-03-14 Completed University of 00:00:00 [place] [facility] TDAP 2017-03-14 Completed University of 00:00:00 [place] [facility] HPV9 2017-03-14 Completed University of 00:00:00 [place] [facility] HPV9 2016-05-29 Completed University of 00:00:00 [place] [facility] HPV9 2016-05-29 Completed University of 00:00:00 [place] [facility] HPV9 2016-05-29 Completed University of 00:00:00 [place] [facility] HPV9 2016-05-29 Completed University of 00:00:00 [place] [facility] HPV9 2016-05-29 Completed University of 00:00:00 [place] [facility] HPV9 2016-05-29 Completed University of 00:00:00 [place] [facility] HPV9 2016-05-29 Completed University of 00:00:00 [place] [facility] HPV9 2016-05-29 Completed University of 00:00:00 [place] [facility] HPV9 2016-05-29 Completed University of 00:00:00 [place] [facility] HPV9 2016-05-29 Completed University of 00:00:00 [place] [facility] HPV9 2016-05-29 Completed University of 00:00:00 [place] [facility] HPV9 2016-05-29 Completed University of 00:00:00 [place] [facility] HPV9 2016-05-29 Completed University of 00:00:00 [place] [facility] HPV9 2016-02-14 Completed University of 00:00:00 [place] [facility] HPV9 2016-02-14 Completed University of 00:00:00 [place] [facility] HPV9 2016-02-14 Completed University of 00:00:00 [place] [facility] HPV9 2016-02-14 Completed University of 00:00:00 [place] [facility] HPV9 2016-02-14 Completed University of 00:00:00 [place] [facility] HPV9 2016-02-14 Completed University of 00:00:00 [place] [facility] HPV9 2016-02-14 Completed University of 00:00:00 [place] [facility] HPV9 2016-02-14 Completed University of 00:00:00 [place] [facility] HPV9 2016-02-14 Completed University of 00:00:00 [place] [facility] HPV9 2016-02-14 Completed University of 00:00:00 [place] [facility] HPV9 2016-02-14 Completed University of 00:00:00 [place] [facility] HPV9 2016-02-14 Completed University of 00:00:00 [place] [facility] HPV9 2016-02-14 Completed University of 00:00:00 [facility] Branch Rubella 2009-04-11 Completed University of 00:00:00 [facility] Branch Rubella 2009-04-11 Completed University of 00:00:00 [facility] Branch Rubella 2009-04-11 Completed University of 00:00:00 [facility] Branch Rubella 2009-04-11 Completed University of 00:00:00 [place] [facility] Rubella 2009-04-11 Completed University of 00:00:00 [facility] Branch Rubella 2009-04-11 Completed University of 00:00:00 [facility] Branch Rubella 2009-04-11 Completed University of 00:00:00 [facility] Branch Rubella 2009-04-11 Completed University of 00:00:00 [place] [facility] Rubella 2009-04-11 Completed University of 00:00:00 [place] [facility] Rubella 2009-04-11 Completed University of 00:00:00 [place] [facility] Rubella 2009-04-11 Completed University of 00:00:00 [place] [facility] Rubella 2009-04-11 Completed University of 00:00:00 [place] [facility] Rubella 2009-04-11 Completed University of 00:00:00 [place] [facility] Td 2005-10-07 Completed University of 00:00:00 [place] [facility] Td 2005-10-07 Completed University of 00:00:00 [place] [facility] TD, NOS 2005-10-07 Completed University of 00:00:00 [place] [facility] TD, NOS 2005-10-07 Completed University of 00:00:00 [place] [facility] TD, NOS 2005-10-07 Completed University of 00:00:00 [place] [facility] TD, NOS 2005-10-07 Completed University of 00:00:00 [place] [facility] TD, NOS 2005-10-07 Completed University of 00:00:00 [place] [facility] TD, NOS 2005-10-07 Completed University of 00:00:00 [place] [facility] TD, NOS 2005-10-07 Completed University of 00:00:00 [place] [facility] TD, NOS 2005-10-07 Completed University of 00:00:00 [place] [facility] TD, NOS 2005-10-07 Completed University of 00:00:00 [place] [facility] TD, NOS 2005-10-07 Completed University of 00:00:00 [place] [facility] TD, NOS 2005-10-07 Completed University of 00:00:00 [facility] Vital Signs Vital Name Observation Time Observation Value Comments Source Systolic blood 2023-05-01 15:26:00 122 mm[Hg] Univer sity of pressure [facility] Diastolic blood 2023-05-01 15:26:00 84 mm[Hg] Unive rsity of pressure [facility] Heart rate 2023-05-01 15:26:00 82 /min [facility] Body temperature 2023-05-01 15:26:00 36.28 Simran [facility] 2023-05-01 15:26:00 18 /min [facility] Body height 2023-05-01 15:26:00 162.6 cm [facility] Body weight 2023-05-01 15:26:00 83.689 kg [facility] BMI 2023-05-01 15:26:00 31.67 kg/m2 [facility] Systolic blood 2023-04-24 12:51:00 114 mm[Hg] Univer sity of pressure [facility] Diastolic blood 2023-04-24 12:51:00 73 mm[Hg] Unive rsity of pressure [facility] Heart rate 2023-04-24 12:51:00 87 /min [facility] Body temperature 2023-04-24 12:51:00 36.11 Simran [facility] Respiratory rate 2023-04-24 12:51:00 18 /min [facility] Body height 2023-04-24 12:51:00 162.6 cm [facility] Body weight 2023-04-24 12:51:00 84.278 kg [facility] BMI 2023-04-24 12:51:00 31.89 kg/m2 [facility] Systolic blood 2023-04-17 13:19:00 113 mm[Hg] Univer sity of pressure [facility] Diastolic blood 2023-04-17 13:19:00 85 mm[Hg] Unive rsity of pressure [facility] Heart rate 2023-04-17 13:19:00 85 /min [facility] Body temperature 2023-04-17 13:19:00 36.44 Simran [facility] Respiratory rate 2023-04-17 13:19:00 18 /min [facility] Body height 2023-04-17 13:19:00 162.6 cm [facility] Body weight 2023-04-17 13:19:00 85.418 kg [facility] BMI 2023-04-17 13:19:00 32.32 kg/m2 [facility] Systolic blood 2021-11-06 17:15:00 111 mm[Hg] Univer sity of pressure [facility] Diastolic blood 2021-11-06 17:15:00 65 mm[Hg] Unive rsity of pressure [facility] Heart rate 2021-11-06 17:15:00 81 /min [facility] Body temperature 2021-11-06 17:15:00 35.94 Simran [facility] Respiratory rate 2021-11-06 17:15:00 20 /min [facility] Body height 2021-11-06 17:15:00 162.6 cm [facility] Body weight 2021-11-06 17:15:00 94.121 kg [facility] BMI 2021-11-06 17:15:00 35.62 kg/m2 [facility] Procedures Procedure Date / Time Performed Performing Clinician Sourc e GC & CHLAMYDIA 2023-04-17 14:55:00 Terri Grimaldo [facility] GALV ONLY - VAGINAL 2023-04-17 14:55:00 Terri Grimaldo [facility] PATHOGENS BY Home Inventory S[pecialists Medical [facility] ACID TESTING CBC WITH DIFF 2023-04-17 14:52:00 Terri Grimaldo [facility] HCV ANTIBODY 2023-04-17 14:52:00 Terri Grimaldo [facility] HIV 1/2 AG-AB WITH 2023-04-17 14:52:00 Terri Grimaldo [facility] SYPHILIS IGG/IGM 2023-04-17 14:52:00 Terri Grimaldo [facility] ASSIGNMENT OF BENEFITS 2023-04-17 12:51:24 Doctor Unassigned, No [facility] Encounters Start End Encounter Admission Attending Care Care Encounter Source Date/Time Date/Time Type Type Clinicians Facility Department ID 2021-08-03 Outpatient [facility] [id number] [facility] 22:07:17 [facility] 2023-05-01 2023-05-01 Outpatient R DILLAN GAMEL [facility] [id number] Univers 10:00:00 11:07:32 TERRI [facility] 2023-05-01 2023-05-01 Office DAVID Grimaldo 1.2.840.114 [id number] Univers 10:00:00 11:07:32 Visit Terri A ACTING PROFESSOR 350.1.13.10 i ty of REGIONAL 4.2.7.2.686 Alessio as MATERNAL [id number] [facility] [address] [place] [address] 2023-04-25 2023-04-25 Telephone [facility] 1.2.840.114 [id number] Univers 00:00:00 00:00:00 Terri A ACTING PROFESSOR 350.1.13.10 i ty of [facility] 4.2.7.2.686 Alessio as MATERNAL [id number] [facility] [address] [place] [address] 2023-04-24 2023-04-24 [facility] [id number] Univers 07:45:00 08:30:11 [facility] 2023-04-24 2023-04-24 Office [facility] 1.2.840.114 [id number] Univers 07:45:00 08:30:11 Visit Terri A ACTING PROFESSOR 350.1.13.10 i ty of [facility] 4.2.7.2.686 Alessio as MATERNAL [id number] [facility] & CHILD [address] [place] [address] 2023-04-23 2023-04-23 Telephone [facility] 1.2.840.114 [id number] Univers 00:00:00 00:00:00 Terri A ACTING PROFESSOR 350.1.13.10 i ty of [facility] 42.7.2.686 Alessio as MATERNAL [id number] [facility] [address] [place] [address] 2023-04-17 2023-04-17 Outpatient R DILLAN [facility] [id number] Univers 08:00:00 09:51:37 [facility] 2023-04-17 2023-04-17 Office [facility] 1.2.840.114 [id number] Univers 08:00:00 09:51:37 Visit Terri A ACTING PROFESSOR 350.1.13.10 i ty of [facility] 4.2.7.2.686 Alessio as MATERNAL [id number] [facility] [address] [place] [address] 2023-04-17 2023-04-17 Orders Doctor CASEY 1.2.840.114 [id number] Univers 00:00:00 00:00:00 Only Unassigned, SCOOBY 350.1.13.10 ity of [place] [facility] 4.2.7.2.686 Alessio as [id number] [facility] 009 Branch 2023-03-05 2023-03-05 Case CARIDAD Smith 1.2.840.114 [id number] Univers 00:00:00 00:00:00 Management Terri APODACAY 350.1.13.10 [place] [id number] [facility] [address] [place] 2021-12-12 2021-12-12 Joselin Wallace [facility] 1.2.840.114 [id number] Univers 00:00:00 00:00:00 Roslindy R ACTING PROFESSOR 350.1.13.10 ity of [facility] 4.2.7.2.686 Alessio as MATERNAL [id number] [facility] & CHILD [address] [place] [address] 2021-11-06 2021-11-06 [facility] 1.2.300.163 [id number] Univers 10:30:00 11:36:45 Visit Michelle Calderon ACTING PROFESSOR 350.1.13.10 ity of [facility] 4.2.7.2.686 Alessio as MATERNAL [id number] [facility] & CHILD [address] [place] [address] 2021-11-06 2021-11-06 Outpatient R AKINSIPE, [facility] [id number] Univers 10:30:00 11:36:45 MICHELLE waldeny o [facility] 2021-11-06 2021-11-06 Outpatient R AKINJEANNIE, [facility] [id number] Univers 10:30:00 10:30:00 MICHELLE ity o f [facility] 2021-11-06 2021-11-06 Outpatient R AKINSIPE, [facility] [id number] Univers 10:30:00 10:30:00 MICHELLE ity o f [facility] 2021-11-05 2021-11-05 [facility] 1.2.840.114 [id number] Univers 00:00:00 00:00:00 Suraj R ACTING PROFESSOR 350.1.13.10 ity of [facility] 4.2.7.2.686 Alessio as MATERNAL [id number] [facility] ical & CHILD [address] [place] [address] 2021-11-02 2021-11-02 Outpatient R KALEE [facility] [id number] Univers 13:15:00 13:15:00 MICHELLE leger o [facility] 2021-11-02 2021-11-02 Office [facility] 1.2.840.114 [id number] Univers 08:30:00 08:45:00 Visit Suraj Royal ACTING PROFESSOR 350.1.13.10 ity of [facility] 4.2.7.2.686 Alessio as MATERNAL [id number] [facility] & CHILD [address] [place] [address] 2021-11-02 2021-11-02 Outpatient R WALLACE [facility] [id number] Univers 08:30:00 08:30:00 SURAJ leger o [facility] 2021-11-02 2021-11-02 Outpatient R RODRIGO [facility] [id number] Univers 08:30:00 08:30:00 SURAJ leger o [facility] 2021-11-02 2021-11-02 [facility] [id number] Univers 08:15:00 08:15:00 MICHELLE leger o [facility] 2021-10-26 2021-10-26 1.2.840.1 1.2.840.114 [id number] Univers 00:00:00 00:00:00 Encounter [id number] 350.1.13.10 ity of 3[place].2[place][id number] [facility] 2021-10-25 2021-10-25 1.2.840.1 1.2.840.114 [id number] Univers 00:00:00 00:00:00 Encounter [id number] 350.1.13.10 ity of 3.104.2.[place] .[id number] 570 [facility] 2021-10-24 2021-10-24 1.2.840.1 1.2.840.114 [id number] Univers 00:00:00 00:00:00 Encounter [id number] 350.1.13.10 ity of 3.104.2.7 [place] .[id number] 570 [facility] 2021-10-16 2021-10-16 Routine Suraj Wallace [facility] 1.2.840 .114 [id number] Univers 13:15:00 13:30:00 Shital Fatima ACTING PROFESSOR 350.1.13.10 ity of Visit REGIONAL 4.2.7.2.686 Alessio as MATERNAL [id number] Med ical & CHILD [address] [place] [address] 2021-10-16 2021-10-16 Outpatient Lele WALLACE [facility] [id number] Univers 13:15:00 13:15:00 SURAJ ortega [facility] 2021-10-02 2021-10-02 Nurse Visit, Ang-Rmchp Nurse [facility] 1.2 .840.114 [id number] Univers 15:00:00 15:36:53 Visit Michelle Granda ACTING PROFESSOR 350.1.13. 10 ity of REGIONAL 4.2.7.2.686 Alessio as MATERNAL [id number] [facility] & [address] 2021-10-02 2021-10-02 Outpatient R KALEE [facility] [id number] Univers 15:00:00 15:00:00 MICHELLE ortega [facility] 2021-09-25 2021-09-26 Inpatient P VIJAY [facility] ANDRES [id number] Univers 06:49:00 16:19:00 MARCUS leger [facility] 2021-09-25 2021-09-26 [facility] Storm Diaz CASEY 1.2.8 40.114 [id number] Univers 06:49:00 16:19:00 Encounter Marcus Goodwin 350.1.13.10 ity [facility] 4.2.7.2.686 Alessio as [id number] [facility] [address] [place] 2021-09-25 2021-09-25 Surgery CASEY Goodwin 1.2.840.114 [id number] Univers 07:35:00 09:16:00 Marcus [facility] 4.2.7.2.686 Alessio as [id number] [facility] [address] [place] 2021-09-20 2021-09-20 Outpatient [facility] [id number] Univers 08:30:00 08:41:01 SHITALSHAYY leger [facility] 2021-09-20 2021-09-20 [facility]ine [facility] 1.2.350.186 [id number] Univers 08:30:00 08:41:01 Shital Grewal ACTING PROFESSOR 350.1.13.10 i ty of Visit [place] [address].2.7.2.686 Alessio as MATERNAL [id number] Med ical & CHILD [address] [place] [address] 2021-09-20 2021-09-20 Outpatient [facility] [id number] Univers 07:45:00 07:45:00 SHITAL leger [facility] 2021-09-12 2021-09-12 [facility]ine [facility] 1.2.196.032 [id number] Univers 08:08:07 08:35:41 Shital Grewal ACTING PROFESSOR 350.1.13.10 i ty of Visit [facility] 4.2.7.2.686 Alessio as MATERNAL [id number] [facility] & [address] 2021-09-12 2021-09-12 Outpatient Lele FATIMA [facility] [id number] Univers 07:45:00 08:35:41 SHITALSHAYY leger [facility] 2021-09-12 2021-09-12 Outpatient [facility] [id number] Univers 07:45:00 07:45:00 SHITAL amy [facility] 2021-09-07 2021-09-07 Physical Science Aide Lab, [facility] 1.2.840. 114 [id number] Univers 13:05:00 13:06:07 Visit Shital Fatima ACTING PROFESSOR 350.1.13.10 ity of [facility] 4.2.7.2.686 Alessio as MATERNAL [id number] [facility] ical & CHILD [address] [place] [address] 2021-09-07 2021-09-07 Outpatient [facility] [id number] Univers 13:00:00 13:00:00 SHITAL leger [facility] 2021-09-06 2021-09-06 Telephone [facility] 1.2.840.114 [id number] Univers 00:00:00 00:00:00 Shital Grewal ACTING PROFESSOR 350.1.13.10 it y of [place] [address].2.7.2.686 Alessio as MATERNAL [id number] [facility] & [address] 2021-09-05 2021-09-05 Outpatient Lele PAEZ [facility] [id number] Univers 10:30:00 11:03:34 JOSE J farfan [facility] 2021-09-05 2021-09-05 Outpatient Lele PAEZ [facility] [id number] Univers 10:30:00 11:03:34 JOSE J ortega [facility] 2021-09-05 2021-09-05 Routine Provider, [place] [facility] 1 .2.840.114 [id number] Univers 10:27:53 11:03:34 Jose J Paez ACTING PROFESSOR 350.1.13 .10 ity of Visit [facility] 4.2.7.2.686 Alessio as MATERNAL [id number] [facility] & CHILD [address] [place] [address] 2021-08-30 2021-08-30 Outpatient Lele FATIMA [facility] [id number] Univers 16:00:00 16:22:54 SHITAL leger [facility] 2021-08-30 2021-08-30 Routine [facility] 1.2.147.125 [id number] Univers 15:56:48 16:22:54 Shital Grewal ACTING PROFESSOR 350.1.13.10 i ty of Visit REGIONAL 4.2.7.2.686 Alessio as MATERNAL [id number] [facility] & [address] 2021-08-17 2021-08-17 Outpatient R KUSHAL [facility] [id number] Univers 09:00:00 09:31:31 SHITAL leger [facility] 2021-08-17 2021-08-17 [facility] 1.2.143.483 [id number] Univers 08:58:12 09:31:31 Shital N ACTING PROFESSOR 350.1.13.10 i ty of Visit REGIONAL 4.2.7.2.686 Alessio as MATERNAL [id number] [address] 2021-08-17 2021-08-17 Outpatient R KUSHAL [facility] [id number] Univers 08:15:00 08:15:00 SHITAL amy [facility] 2021-08-08 2021-08-08 [facility] [id number] Univers 08:15:00 08:51:01 SHITAL leger [facility] 2021-08-08 2021-08-08 Routine [facility] 1.2.397.115 [id number] Univers 08:05:41 08:51:01 Shital N ACTING PROFESSOR 350.1.13.10 i ty of Visit REGIONAL 4.2.7.2.686 Alessio as MATERNAL [id number] [address] 2021-07-18 2021-07-18 [facility] 1.2.527.342 [id number] Univers 10:11:20 10:46:35 Michelle Yumiko ACTING PROFESSOR 350.1.13.10 ity of Visit REGIONAL 4.2.7.2.686 Alessio as MATERNAL [id number] [address] 2021-07-18 2021-07-18 [facility] [id number] Univers 10:15:00 10:15:00 MICHELLE ortega [facility] 2021-07-18 2021-07-18 Orders Doctor PEÑA 1.2.840.114 [id number] Univers 00:00:00 00:00:00 Only Unassigned, SCOOBY 350.1.13.10 ity of [place] [facility] 4.2.7.2.686 Alessio as [id number] [address] 2021-07-11 2021-07-11 Physical Science Aide Lab, [facility] 1.2.840. 114 [id number] Univers 08:13:34 08:31:27 Visit Michelle Granda ACTING PROFESSOR 350.1.13. 10 ity of [facility] 4.2.7.2.686 Alessio as MATERNAL [id number] Med ical & CHILD [address] [place] [address] 2021-07-11 2021-07-11 Outpatient R [facility] [id number] Univers 08:00:00 08:00:00 ity of [facility] 2021-07-05 2021-07-05 Telephone [facility] 1.2.840.114 [id number] Univers 00:00:00 00:00:00 Michelle Calderon ACTING PROFESSOR 350.1.13.10 ity of [facility] 4.2.7.2.686 Alessio as MATERNAL [id number] Med ica & CHILD [address] [place] [address] 2021-07-04 2021-07-04 Routine [facility] 1.2.779.561 [id number] Univers 10:46:35 11:24:59 Michelle Calderon ACTING PROFESSOR 350.1.13.10 ity of Visit [facility] 4.2.7.2.686 Alessio as MATERNAL [id number] Med ical & CHILD [address] [place] [address] 2021-07-04 2021-07-04 Outpatient R KALEE [facility] [id number] Univers 10:45:00 10:45:00 MICHELLE ity o f [facility] 2021-06-14 2021-06-14 Physical Science Aide Ultrasound, [facility] 1.2 .840.114 [id number] Univers 09:47:17 10:32:17 Visit Ephraim Salcido ACTING PROFESSOR 350.1.13.10 ity of REGIONAL 4.2.7.2.686 Alessio as MATERNAL [id number] Med ical & CHILD 369 [facility] 2021-06-14 2021-06-14 Outpatient P [facility] [id number] Univers 09:45:00 09:45:00 ity of [facility] 2021-06-14 2021-06-14 Abstract Kalee, [facility] 1.2.840.114 [id number] Univers 00:00:00 00:00:00 Michelle C ACTING PROFESSOR 350.1.13.10 ity of REGIONAL 4.2.7.2.686 Alessio as MATERNAL [id number] [facility] [address] [place] [address] 2021-06-06 2021-06-06 Routine Kalee, [facility] 1.2.342.501 [id number] Univers 09:16:26 09:31:26 Michelle C ACTING PROFESSOR 350.1.13.10 ity of Visit REGIONAL 4.2.7.2.686 Alessio as MATERNAL [id number] [facility] & CHILD [address] [place] [address] 2021-06-06 2021-06-06 Outpatient R KALEE, [facility] [id number] Univers 09:15:00 09:15:00 MICHELLE ity o f [facility] 2021-06-06 2021-06-06 Outpatient R KALEE, [facility] [id number] Univers 09:15:00 09:15:00 MICHELLE ity o f [facility] 2021-06-05 2021-06-05 Outpatient R ELVINPE, [facility] [id number] Univers 09:15:00 09:15:00 MICHELLE ity o f [facility] 2021-05-17 2021-05-17 Outpatient P [facility] [id number] Univers 13:45:00 13:45:00 ity [facility] 2021-05-09 2021-05-09 Outpatient R KALEE, [facility] [id number] Univers 09:00:00 09:00:00 MICHELLE ity o f [facility] 2021-04-25 2021-04-25 Outpatient R GIGI [facility] [id number] Univers 13:00:00 13:00:00 RUIQING [facility] 2021-04-13 2021-04-13 Outpatient R SUN, [facility] [id number] Univers 12:00:00 12:00:00 RUIQING [facility] 2021-04-12 2021-04-12 Outpatient R KALEE, [facility] [id number] Univers 10:30:00 10:30:00 MICHELLE ity o [facility] 2021-04-11 2021-04-11 Outpatient R AKINSIPE, [facility] [id number] Univers 10:00:00 10:00:00 MICHELLE ity o [facility] 2021-04-03 2021-04-03 Outpatient R [facility] [id number] Univers 08:00:00 08:00:00 [facility] 2021-03-22 2021-03-22 Outpatient P [facility] [id number] Univers 13:00:00 13:00:00 [facility] 2021-03-09 2021-03-09 Outpatient R [facility] [id number] Univers 15:30:00 15:30:00 [facility] 2021-02-24 2021-02-24 Outpatient P [facility] [id number] Univers 15:00:00 15:00:00 [facility] 2021-02-13 2021-02-13 Outpatient R KALEE, [facility] [id number] Univers 08:30:00 08:30:00 MICHELLE ity o [facility] 2021-02-10 2021-02-10 Initial [facility] 1.2.335.174 [id number] 09:24:15 10:36:45 Michelle C ACTING PROFESSOR 350.1.13.10 Visit REGIONAL 4.2.7.2.686 MATERNAL [id number] & CHILD [address] [place] [address] 2021-02-10 2021-02-10 Outpatient R KALEE, [facility] [id number] Univers 10:00:00 10:00:00 MICHELLE ity o f [facility] 2021-02-10 2021-02-10 Outpatient R [facility] [id number] Univers 09:00:00 09:00:00 ity [facility] 2020-07-12 2020-07-12 Outpatient R [facility] [id number] Univers 10:00:00 [facility]:00[facility]11 2020-04-11 Outpatient R AKINSIPE, [facility] [id number] Univers 10:15:00 10:15:00 MICHELLE ity o f [facility] 2020-03-21 2020-03-21 Outpatient R AKINSIPE, [facility] [id number] Univers 11:00:00 11:00:00 MICHELLE ity o f [facility] 2020-03-15 2020-03-15 Outpatient R [facility] [id number] Univers 13:00:00 13:00:00 [facility] 2020-03-07 2020-03-07 Outpatient R AKINSIPE, [facility] [id number] Univers 13:00:00 13:00:00 MICHELLE ity o f [facility] 2020-02-24 2020-02-24 Outpatient R RODRIGO, [facility] [id number] Univers 13:30:00 13:30:00 ROSHUNDA ity o f [facility] 2020-02-17 2020-02-17 Outpatient R RODRIGO, [facility] [id number] Univers 10:45:00 10:45:00 ROSHUNDA ity o f [facility] 2020-02-10 2020-02-10 Outpatient R RODRIGO, [facility] [id number] Univers 10:15:00 10:15:00 ROSHUNDA ity o f [facility] 2020-01-27 2020-01-27 Outpatient R RODRIGO, [facility] [id number] Univers 10:00:00 10:00:00 ROSHUNDA ity o f [facility] 2020-01-19 2020-01-19 Outpatient R RODRIGO [facility] [id number] Univers 13:15:00 13:15:00 ROSHUNDA ity o f [facility] 2020-01-18 2020-01-18 Outpatient R LO, [facility] [id number] Univers 13:42:06 23:59:00 ROSEMARY [facility] 2020-01-05 2020-01-05 Outpatient R RODRIGO [facility] [id number] Univers 12:45:00 12:45:00 SURAJ leger o jordan [facility] 2020-01-04 2020-01-04 Outpatient Lele WALLACE [facility] [id number] Univers 13:00:00 13:00:00 SURAJ leger o jordan [facility] 2019-12-21 2019-12-21 Outpatient R WALLY [facility] [id number] Univers 15:45:00 15:45:00 ROSEMARY leger [facility] 2019-12-14 2019-12-14 Outpatient Lele WALLACE [facility] [id number] Univers 08:15:00 08:15:00 SURAJ leger o jordan [facility] 2019-11-30 2019-11-30 Outpatient Lele WALLACE [facility] [id number] Univers 08:15:00 08:15:00 SURAJ ortega [facility] Results This patient has no known results. Notes Date/Time Note Provider Source 2023-04-25 [facility] 13:09:53-00:00 Called pt, notified provider sent lidocaine jelly, Recommended sitz baths, and educated on good rx. Verbalized understanding. Jania Coffman RN 04/25/23 1:10 PM 2023-04-25 [facility] 13:02:14-00:00 I erx lidocaine jelly to the pharmacy. 2023-04-25 [facility] 11:24:21-00:00 Pt calling for results for H SV swab, pt advised still pending. Pt tearful and reports 10/10 pain, advised will route to provider for POC or pain management in the meantime. Jania Coffman RN 04/25/23 11:24 AM 2023-04-25 Formatting of this note might be differe nt from the original. Malina Welsh [facility] 10:36:19-00:00 Patient is requesting to spe ak to nurse in regards to results, Spoke to patient informed her results where not ready yet and that a nurse would give her a call as soon as the results where reviewed by the provider. Electronically signed by Malina Welsh at 10:38 AM CDT 2023-04-25 Formatting of this note might be differe nt from the original. Nicol Bowen [facility] 10:30:18-00:00 Ghazal Mccormick is a 33 year old female Patient called for results review. Please contact pt at [phone] (home) Electronically signed by Nicol Bowen at 0 04/25/2023 10:31 AM CDT
[2023-05-28] MEDS ORDERED: FLUORESCEIN SODIUM 1 MG/WRAP ONE (18:53)
[2023-05-28] MEDS ORDERED: TETRACAINE HCL 0.5% 4ML OPTH ONE (18:54)
--- NOTE | 2023-05-28 19:23 | ER ---
Nurse's Notes [facility] Name: Ghazal Fong Age: 33 yrs Sex: Female : 1990 Arrival Date: 05/28/2023 Time: 18:01 Bed 9 Private MD: Diagnosis: Unspecified acute conjunctivitis, right eye;Ocular pain, right eye Presentation: 05/28 18:16 Chief complaint: Patient states: right eye redness, irritation. Risk Assessment: Do you aa5 want to hurt yourself or someone else? Patient reports no desire to harm self or others. Onset of symptoms was May 2023. 18:16 Acuity: JOEL 5 aa5 18:16 Method Of Arrival: Ambulatory aa5 18:16 Coronavirus screen: At this time, the client does not indicate any symptoms associated aa5 with coronavirus-19. 18:16 Ebola Screen: Patient denies travel to an Ebola-affected area in the 21 days before aa5 illness onset. Mechanism of Injury: No Mechanism of Injury. The patient denies any loss of vision. Initial Sepsis Screen: Does the patient meet any 2 criteria? No. Patient's initial sepsis screen is negative. Does the patient have a suspected source of infection? No. Patient's initial sepsis screen is negative. Historical: - Allergies: 18:17 No Known Allergies; aa5 - PMHx: 18:17 None; aa5 - Immunization history:: Adult Immunizations unknown. - Social history:: Smoking status: Patient denies any tobacco usage or history of. Screenin:48 [facility] ED Fall Risk Assessment (Adult) History of falling in the last 3 months, tf2 including since admission No falls in past 3 months (0 pts) Confusion or Disorientation No (0 pts) Intoxicated or Sedated No (0 pts) Impaired Gait No (0 pts) Mobility Assist Device Used No (0 pt) Altered Elimination No (0 pt) Score/Fall Risk Level 0 - 2 = Low Risk Oriented to surroundings, Maintained a safe environment, Educated pt \T\ family on fall prevention, incl call for assistance when getting out of bed. Abuse screen: Denies threats or abuse. Denies injuries from another. Nutritional screening: No deficits noted. Tuberculosis screening: No symptoms or risk factors identified. Assessment: 18:48 General: Appears distressed, uncomfortable. Pain: Complains of pain in right eye Pain tf2 currently is 10 out of 10 on a pain scale. Neuro: No deficits noted. Cardiovascular: No deficits noted. Respiratory: No deficits noted. GI: No deficits noted. : No deficits noted. EENT: Eyes are tearing on right upper eyelid, right outer canthus, outer aspect of conjuctiva of right eye, iris of right eye, inner aspect of conjuctiva of right eye, right inner canthus and right lower eyelid Sclera/Cornea are reddened in outer aspect of conjuctiva of right eye and inner aspect of conjuctiva of right eye. Derm: No deficits noted. Musculoskeletal: No deficits noted. Injury Description: Pt thinks she put a dirty contact in her right eye. says she was able to get it out but eye has gotten more red through the day. Vital Signs: 18:16 BP 120 / 85; Pulse 80; Resp 18 S; Temp 98.2(TE); Pulse Ox 100% on R/A; Weight 83.01 kg aa5 (R); Height 5 ft. 5 in. (R); 18:48 BP 112 / 73; Pulse 72; Resp 18; Pulse Ox 100% on R/A; tf2 18:16 Body Mass Index 30.45 (83.01 kg, 165.1 cm) aa5 Visual Acuity: 19:35 Left Eye Visual acuity 20/30, ; Right Eye Visual acuity 20/100, ; Both Eyes Visual pf1 acuity 20/40; With Lenses; ED Course: 18:02 Patient arrived in ED. kj1 18:11 [facility]C [facility] kb 18:11 Bill Huerta DO is Attending Physician. kb 18:16 Arm band placed on. aa5 18:17 Triage completed. aa5 18:41 Amanda Hernandez, RN is Primary Nurse. tf2 18:48 Appears restless. tf2 18:48 Patient has correct armband on for positive identification. Bed in low position. Call tf2 light in reach. Side rails up X 1. Provided Education on: procedure and meds. 18:48 Assist provider with eye exam eye set up at bedside. tf2 19:22 Michele Chappell MD is Referral Physician. ms3 19:44 Patient did not have IV access during this emergency room visit. pf1 Administered Medications: 19:15 Drug: Tetracaine Ophthalmic Drops 0.5 % 1 drops Route: Ophthalmic; Site: right eye; rs5 19:44 Follow up: Response: No adverse reaction; Marked relief of symptoms; Pain is decreased pf1 Medication: 18:48 VIS not applicable for this client. tf2 Outcome: :22 Discharge ordered by . ms3 19:44 Discharged to home ambulatory. rs5 19:44 Condition: stable 19:44 Discharge instructions given to patient, Instructed on discharge instructions, follow up and referral plans. Demonstrated understanding of instructions, follow-up care, medications, Prescriptions given X 1. 19:44 Patient left the ED. rs5 Signatures: Lisa Saldivar, SHELDON-C [employer] OPERATOR-Nemo Lafleur RN RN aa5 Adry Saldivar kj1 Bill Huerta DO DO ms3 Cary Doss, RONALD RN pf1 Rodney Henson RN RN rs5 Amanda Hernandez RN RN tf2 Corrections: (The following items were deleted from the chart) 05/29 05:40 05/28 19:35 Right Eye With Lenses, 20/100, Left Eye With Lenses, 20/40, Both Eyes With pf1 Lenses, 20/60 pf1
--- NOTE | 2023-05-28 19:23 | EDPHYS ---
Physician Documentation [facility] Name: Ghazal Fong Age: 33 yrs Sex: Female : 1990 Arrival Date: 05/28/2023 Time: 18:01 Bed 9 Private MD: ED Physician Bill Huerta HPI: 05/28 18:20 This 33 yrs old Female presents to ER via Ambulatory with complaints of Eye ms3 Pain. 18:20 33-year-old female with no past medical history presents for right eye pain that began ms3 this morning. Patient states the sensation is itching, burning, irritating. Patient states she bought pinkeye solution from [employer] and has used the bottle without relief. Patient endorses clear discharge from her eye.. Historical: - Allergies: 18:17 No Known Allergies; aa5 - PMHx: 18:17 None; aa5 - Immunization history:: Adult Immunizations unknown. - Social history:: Smoking status: Patient denies any tobacco usage or history of. ROS: 18:20 Constitutional: Negative for fever, and chills. Neck: Negative for injury, pain, and ms3 swelling, Cardiovascular: Negative for chest pain, and palpitations. Respiratory: Negative for shortness of breath, cough, wheezing, and pleuritic chest pain, Abdomen/GI: Negative for abdominal pain, nausea, vomiting, diarrhea, and constipation, MS/Extremity: Negative for injury and deformity, Skin: Negative for injury, rash, and discoloration. 18:20 Eyes: Positive for discharge, itching. 18:20 All other systems are negative. Exam: 18:20 Constitutional: This is a well developed, well nourished patient who is awake, alert, ms3 and in no acute distress. Head/Face: Normocephalic, atraumatic. ENT: Nares patent. No nasal discharge, no septal abnormalities noted. Tympanic membranes are normal and external auditory canals are clear. Oropharynx with no redness, swelling, or masses, exudates, or evidence of obstruction, uvula midline. Mucous membranes moist. Neck: Trachea midline, no cervical lymphadenopathy. Supple, full range of motion without nuchal rigidity, or vertebral point tenderness. No Meningismus. Chest/axilla: Normal chest wall appearance and motion. Nontender with no deformity. Cardiovascular: Regular rate and rhythm with a normal S1 and S2. No gallops, murmurs, or rubs. Normal PMI, no JVD. No pulse deficits. Respiratory: Lungs have equal breath sounds bilaterally, clear to auscultation and percussion. No rales, rhonchi or wheezes noted. No increased work of breathing, no retractions or nasal flaring. Abdomen/GI: Soft, non-tender, with normal bowel sounds. No distension or tympany. No guarding or rebound. No evidence of tenderness throughout. Skin: Warm, dry with normal turgor. Normal color with no rashes, no lesions, and no evidence of cellulitis. 18:20 Eyes: Periorbital structures: appear normal, Pupils: equal, round, and reactive to light and accomodation, Extraocular movements: no acute changes, Conjunctiva: injected, in the right eye. 19:28 Eyes: Corneas: abrasion, is not appreciated, foreign body, is not appreciated, a ms3 fluorescein strip employed to appreciate the findings, Examination of the other eye reveals no obvious gross abnormality, Intraocular pressure: right eye = 18mmHg. 19:28 Visual Acuity: Patient denies change in visual acuity. ms3 Vital Signs: 18:16 BP 120 / 85; Pulse 80; Resp 18 S; Temp 98.2(TE); Pulse Ox 100% on R/A; Weight 83.01 kg aa5 (R); Height 5 ft. 5 in. (R); 18:48 BP 112 / 73; Pulse 72; Resp 18; Pulse Ox 100% on R/A; tf2 18:16 Body Mass Index 30.45 (83.01 kg, 165.1 cm) aa5 Visual Acuity: 19:35 Left Eye Visual acuity 20/30, ; Right Eye Visual acuity 20/100, ; Both Eyes Visual pf1 acuity 20/40; With Lenses; MDM: 18:18 Patient medically screened. ms3 18:20 Differential diagnosis: Corneal abrasion of right eye. Corneal ulcer of right eye. ms3 Infectious conjunctivitis in right eye. 19:29 Data reviewed: vital signs, nurses notes, and as a result, I will discharge patient. I ms3 considered the following discharge prescriptions or medication management in the emergency department Medications were administered in the Emergency Department. See MAR. Counseling: I had a detailed discussion with the patient and/or guardian regarding the historical points, exam findings, and any diagnostic results supporting the discharge/admit diagnosis, the need for outpatient follow up, to return to the emergency department if symptoms worsen or persist or if there are any questions or concerns that arise at home. Special discussion: I discussed with the patient/guardian in detail that at this point there is no indication for admission to the hospital. It is understood, however, that if the symptoms persist or worsen the patient needs to return immediately for re-evaluation. 05/28 18:20 Order name: Eye Tray; Complete Time: 18:47 ms3 05/28 18:20 Order name: Fluoresene Opth strip; Complete Time: 18:47 ms3 05/28 18:20 Order name: Visual Acuity; Complete Time: 18:47 ms3 Administered Medications: 19:15 Drug: Tetracaine Ophthalmic Drops 0.5 % 1 drops Route: Ophthalmic; Site: right eye; rs5 19:44 Follow up: Response: No adverse reaction; Marked relief of symptoms; Pain is decreased pf1 Disposition Summary: 05/28/23 19:22 Discharge Ordered Location: Home ms3 Condition: Stable ms3 Diagnosis - Unspecified acute conjunctivitis, right eye ms3 - Ocular pain, right eye ms3 Followup: ms3 - With: Michele Chappell MD - When: 1 - 2 days - Reason: Recheck today's complaints Discharge Instructions: - Discharge Summary Sheet ms3 - How to Use Eye Drops and Eye Ointments ms3 Forms: - Medication Reconciliation Form ms3 - Thank You Letter ms3 - Antibiotic Education ms3 - Prescription Opioid Use ms3 - Patient Portal Instructions ms3 - Leadership Thank You Letter ms3 Prescriptions: - Vigamox 0.5 % Ophthalmic Drops - instill 1 drop by OPHTHALMIC route every 8 hours for 7 days; 5 milliliter; ms3 Refills: 0, Product Selection Permitted Signatures: Nemo Tao RN RN aa5 Bill Huerta DO DO ms3 Rodney Henson RN RN rs5 Cary Doss RN pf1
[2023-05-28 19:58] VITALS: TEMP 98.2; O2SAT 100
[2023-05-28 19:59] VITALS: BP 112/73
== END 2023-05-28 19:44 | disposition home or self-care (01) ==
LOC: ER 18:01
DX: H10.31 Unspecified acute conjunctivitis, right eye (principal)
CPT/HCPCS: 99284